=== PATIENT | female | born 1955 | race African-American/Black ===

== ENCOUNTER 2022-08-11 12:19 | Day surgery (SDC) | payer OTHER ==
[~2022-08-11 12:19] MED LIST: ACETAMINOPHEN 325 MG TABLET (FP) PO ONE; BORTEZOMIB 2.5 MG/ML SUB-Q INJECTION SQ ONE; DARATUMUMAB-HYALURONIDASE-FIHJ (FASPRO) 15 ML VIAL SQ ONE; DEXAMETHASONE SODIUM PHOSPHATE 40 MG, DIPHENHYDRAMINE 50 MG in SODIUM CHLORIDE 100 ML IVPB ONE; MONTELUKAST NA 10 MG TABLET PO ONE
[2022-08-11 12:52] LABS: BASO % 0.4 % (0-2.0); EOS % 0.5 % (0-4.5); HEMATOCRIT 20.5 % (32.4-45.2); LYMPH % 18.8 % (8-40); MCH 32.8 pg (25.7-33.7); MCHC 33.5 g/dl (32.0-36.0); MONO % 7.9 % (3.8-10.2); NEUT % 72.4 % (42.8-82.8); PLATELET COUNT 214 10^3/uL (134-434); RBC 2.09 M/mm3 (3.60-5.2); RDW 19.1 % (11.6-15.6); WHITE BLOOD COUNT 3.6 K/mm3 (4.0-10.0)
[2022-08-11 12:54] LABS: HEMOGLOBIN 6.9 GM/dL (10.7-15.3)
[2022-08-11 13:08] LABS: POTASSIUM 3.8 mmol/L (3.5-5.1)
[2022-08-11 13:10] LABS: CALCIUM 9.4 mg/dL (8.5-10.1)
[2022-08-11 13:11] LABS: ALBUMIN 2.3 g/dl (3.4-5.0); BLOOD UREA NITROGEN 10.6 mg/dL (7-18)
[2022-08-11 13:13] LABS: BILIRUBIN,DIRECT 0.2 mg/dL (0.0-0.2)
[2022-08-11 13:14] LABS: CREATININE 0.7 mg/dL (0.55-1.3)
[2022-08-11 13:15] LABS: BILIRUBIN,TOTAL 0.4 mg/dL (0.2-1)
[2022-08-11 13:25] LABS: TOT PROT 12.9 g/dl (6.4-8.2)
[2022-08-11 17:42] VITALS: TEMP 98.3
[2022-08-11 18:03] VITALS: BP 129/70; PULSE 92; RESP 19
[2022-08-12 13:07] LABS: FREE KAPPA,SERUM 1092.7 mg/L (3.3-19.4)
== END 2022-08-11 16:25 | disposition home or self-care (01) ==
LOC: EDBD → JONCCHEMO 12:19 → J7W 12:53 → JONCCHEMO 16:25
PROVIDERS: ATTEND Internal Medicine Hematology & Oncology
PROC: 3E01305 Introduction of Other Antineoplastic into Subcutaneous Tissue, Percutaneous Approach (ICD-10-PCS; principal; 2022-08-11)
PROC: 3E01305 Introduction of Other Antineoplastic into Subcutaneous Tissue, Percutaneous Approach (ICD-10-PCS; 2022-08-11)
PROC: 3E033GC Introduction of Other Therapeutic Substance into Peripheral Vein, Percutaneous Approach (ICD-10-PCS; 2022-08-11)
DX: Z51.11 Encounter for antineoplastic chemotherapy (principal); C90.00 Multiple myeloma not having achieved remission
CPT/HCPCS: 36415; 36430; 80048; 80076; 82784; 83883; 84155; 84165; 85025; 86850; 86900; 86901; 86922; 96365; 96401; J9041; J9144; P9058

== ENCOUNTER 2022-08-11 16:23 | Emergency (ER) | payer OTHER ==
[2022-08-11 16:43] VITALS: BMI 19.7
[2022-08-11] MEDS ORDERED: traMADol HCL 50 MG TABLET ONE (18:41)
[2022-08-11 18:54] VITALS: RESP 18
[2022-08-11] MEDS ORDERED: ACETAMINOPHEN 500 MG TABLET (FP) PO ONE (19:10)
[2022-08-11] MEDS ORDERED: traMADol HCL 50 MG TABLET PO ONE (19:10)
[2022-08-11] MEDS ORDERED: ACETAMINOPHEN 325 MG TABLET (FP) ONE (19:23)
[2022-08-11 21:28] VITALS: BP 127/79; PULSE 87; TEMP 98.6
== END 2022-08-11 22:38 ==
LOC: JER 16:23
DX: C90.00 Multiple myeloma not having achieved remission (principal); D50.9 Iron deficiency anemia, unspecified; R42 Dizziness and giddiness; R53.83 Other fatigue
CPT/HCPCS: 99285-25

== ENCOUNTER 2022-08-18 08:24 | Day surgery (SDC) | payer OTHER ==
[2022-08-18 09:14] LABS: BASO % 0.1 % (0-2.0); EOS % 0.2 % (0-4.5); HEMATOCRIT 19.8 % (32.4-45.2); MCH 32.8 pg (25.7-33.7); MCHC 33.6 g/dl (32.0-36.0); MEAN CELL VOLUME 97.4 fl (80-96); MEAN PLT VOLUME 6.3 fl (7.5-11.1); MONO % 8.8 % (3.8-10.2); NEUT % 74.9 % (42.8-82.8); PLATELET COUNT 208 10^3/uL (134-434); RBC 2.04 M/mm3 (3.60-5.2); RDW 19.6 % (11.6-15.6); WHITE BLOOD COUNT 3.3 K/mm3 (4.0-10.0)
[2022-08-18 09:34] LABS: HEMOGLOBIN 6.7 GM/dL (10.7-15.3)
[2022-08-18 09:41] LABS: POTASSIUM 3.8 mmol/L (3.5-5.1)
[2022-08-18 09:42] LABS: CALCIUM 9.1 mg/dL (8.5-10.1)
[2022-08-18 09:43] LABS: BLOOD UREA NITROGEN 15.7 mg/dL (7-18)
[2022-08-18 09:46] LABS: CREATININE 0.6 mg/dL (0.55-1.3)
[2022-08-18] MEDS ORDERED: DEXAMETHASONE SODIUM PHOSPHATE 40 MG, DIPHENHYDRAMINE 50 MG in SODIUM CHLORIDE 100 ML IVPB ONE (10:00)
[2022-08-18] MEDS ORDERED: ACETAMINOPHEN 325 MG TABLET (FP) PO ONE (10:00)
[2022-08-18] MEDS ORDERED: BORTEZOMIB 2.5 MG/ML SUB-Q INJECTION SQ ONE (10:30)
[2022-08-18] MEDS ORDERED: DARATUMUMAB-HYALURONIDASE-FIHJ (FASPRO) 15 ML VIAL SQ ONE (10:30)
[2022-08-18 12:17] LABS: ALBUMIN 2.2 g/dl (3.4-5.0)
[2022-08-18 12:20] LABS: BILIRUBIN,DIRECT 0.1 mg/dL (0.0-0.2)
[2022-08-18 12:22] LABS: BILIRUBIN,TOTAL 0.3 mg/dL (0.2-1)
[2022-08-18 12:38] LABS: TOT PROT 12.8 g/dl (6.4-8.2)
[2022-08-18] MEDS ORDERED: traMADol HCL 50 MG TABLET PO PRN (15:39)
[2022-08-18] MEDS ORDERED: ACETAMINOPHEN 325 MG TABLET (FP) PO PRN (17:57)
[2022-08-18] MEDS ORDERED: MELATONIN 1 MG TABLET PO SCH (22:00)
[2022-08-18] MEDS ORDERED: LIDOCAINE PATCH REMOVAL MC SCH (22:00)
[2022-08-18] MEDS: SODIUM BICARBONATE 650 MG TABLET PO SCH (22:50)
[2022-08-18] MEDS: SODIUM CHLORIDE 1 GM TABLET PO SCH (22:50)
[2022-08-18] MEDS: hydrALAZINE HCL 25 MG TABLET (FP) PO SCH (22:50)
[2022-08-18] MEDS: traMADol HCL 50 MG TABLET PO PRN (22:53)
[2022-08-19] MEDS: traMADol HCL 50 MG TABLET PO PRN (03:17)
[2022-08-19 05:40] VITALS: RESP 20
[2022-08-19] MEDS: hydrALAZINE HCL 25 MG TABLET (FP) PO SCH (05:58)
[2022-08-19 08:45] LABS: HEMATOCRIT 22.4 % (32.4-45.2); HEMOGLOBIN 7.8 GM/dL (10.7-15.3); MCH 32.7 pg (25.7-33.7); MEAN CELL VOLUME 93.5 fl (80-96); MEAN PLT VOLUME 6.9 fl (7.5-11.1); PLATELET COUNT 189 10^3/uL (134-434); RDW 19.9 % (11.6-15.6); WHITE BLOOD COUNT 4.4 K/mm3 (4.0-10.0)
[2022-08-19 08:59] LABS: POTASSIUM 3.9 mmol/L (3.5-5.1)
[2022-08-19 09:00] VITALS: BP 151/88; PULSE 79; TEMP 98.6
[2022-08-19 09:02] LABS: CALCIUM 8.7 mg/dL (8.5-10.1)
[2022-08-19 09:03] LABS: ALBUMIN 2.2 g/dl (3.4-5.0); BLOOD UREA NITROGEN 17.4 mg/dL (7-18)
[2022-08-19 09:06] LABS: CREATININE 0.6 mg/dL (0.55-1.3)
[2022-08-19 09:08] LABS: BILIRUBIN,TOTAL 0.4 mg/dL (0.2-1)
[2022-08-19 09:17] LABS: TOT PROT 12.8 g/dl (6.4-8.2)
[2022-08-19] MEDS: SODIUM CHLORIDE 1 GM TABLET PO SCH (09:33)
[2022-08-19] MEDS: SODIUM BICARBONATE 650 MG TABLET PO SCH (09:35)
[2022-08-19] MEDS ORDERED: LIDOCAINE 5% TOPICAL PATCH TP SCH (10:00)
[2022-08-19] MEDS ORDERED: LOSARTAN POTASSIUM 50 MG TABLET PO SCH (10:00)
[2022-08-19] MEDS ORDERED: HYDROCHLOROTHIAZIDE 25 MG TABLET (FP) PO SCH (10:00)
[2022-08-19] MEDS ORDERED: CALCITRIOL 0.25 MCG CAPSULE (FP) PO SCH (10:00)
== END 2022-08-19 12:00 ==
LOC: JONCCHEMO 08:24 → J7W 08:25 → JONCCHEMO 08-19 12:00
PROVIDERS: ATTEND Internal Medicine Hematology & Oncology
PROC: 30233H1 Transfusion of Nonautologous Whole Blood into Peripheral Vein, Percutaneous Approach (ICD-10-PCS; principal; 2022-08-18)
PROC: 3E01305 Introduction of Other Antineoplastic into Subcutaneous Tissue, Percutaneous Approach (ICD-10-PCS; 2022-08-18)
PROC: 3E01305 Introduction of Other Antineoplastic into Subcutaneous Tissue, Percutaneous Approach (ICD-10-PCS; 2022-08-18)
PROC: 3E033GC Introduction of Other Therapeutic Substance into Peripheral Vein, Percutaneous Approach (ICD-10-PCS; 2022-08-18)
DX: Z51.11 Encounter for antineoplastic chemotherapy (principal); C90.00 Multiple myeloma not having achieved remission; D64.9 Anemia, unspecified
CPT/HCPCS: 36415; 36430; 71045-TC-FY; 80048; 80053; 80076; 85025; 85027; 86850; 86870; 86900; 86901; 86902; 86922; 96365; 96401; J9041; J9144; P9058

== ENCOUNTER 2022-09-02 08:28 | Day surgery (SDC) | payer OTHER ==
[2022-09-02] MEDS ORDERED: ACETAMINOPHEN 325 MG TABLET (FP) PO ONE (09:00)
[2022-09-02] MEDS ORDERED: DEXAMETHASONE SODIUM PHOSPHATE 40 MG, DIPHENHYDRAMINE 50 MG in SODIUM CHLORIDE 100 ML IVPB ONE (09:00)
[2022-09-02] MEDS ORDERED: DARATUMUMAB-HYALURONIDASE-FIHJ (FASPRO) 15 ML VIAL SQ ONE (09:30)
[2022-09-02] MEDS ORDERED: BORTEZOMIB 2.5 MG/ML SUB-Q INJECTION SQ ONE (09:45)
[2022-09-02 10:30] LABS: HEMATOCRIT 24.9 % (32.4-45.2); HEMOGLOBIN 8.2 GM/dL (10.7-15.3); MCH 31.2 pg (25.7-33.7); MCHC 32.8 g/dl (32.0-36.0); MEAN PLT VOLUME 6.9 fl (7.5-11.1); PLATELET COUNT 256 10^3/uL (134-434); RBC 2.62 M/mm3 (3.60-5.2); RDW 20.3 % (11.6-15.6); WHITE BLOOD COUNT 5.3 K/mm3 (4.0-10.0)
[2022-09-02 10:57] LABS: POTASSIUM 3.6 mmol/L (3.5-5.1)
[2022-09-02 11:04] LABS: CALCIUM 10.1 mg/dL (8.5-10.1)
[2022-09-02 11:05] LABS: ALBUMIN 2.1 g/dl (3.4-5.0); BLOOD UREA NITROGEN 21.8 mg/dL (7-18)
[2022-09-02 11:08] LABS: BILIRUBIN,DIRECT 0.1 mg/dL (0.0-0.2); CREATININE 0.5 mg/dL (0.55-1.3)
[2022-09-02 11:09] LABS: BILIRUBIN,TOTAL 0.6 mg/dL (0.2-1)
[2022-09-02 11:10] LABS: TOT PROT 11.6 g/dl (6.4-8.2)
[2022-09-02 11:16] LABS: ANISOCYTOSIS 1+; MACROCYTOSIS 1+
[2022-09-02 13:46] VITALS: BP 138/81; PULSE 94; RESP 20; TEMP 98.4
== END 2022-09-02 13:30 | disposition home or self-care (01) ==
LOC: JONCCHEMO 08:28 → J7W 08:29 → JONCCHEMO 13:30
PROVIDERS: ATTEND Internal Medicine Hematology & Oncology
PROC: 3E01305 Introduction of Other Antineoplastic into Subcutaneous Tissue, Percutaneous Approach (ICD-10-PCS; principal; 2022-09-02)
PROC: 3E01305 Introduction of Other Antineoplastic into Subcutaneous Tissue, Percutaneous Approach (ICD-10-PCS; 2022-09-02)
PROC: 3E033GC Introduction of Other Therapeutic Substance into Peripheral Vein, Percutaneous Approach (ICD-10-PCS; 2022-09-02)
DX: Z51.11 Encounter for antineoplastic chemotherapy (principal); C90.00 Multiple myeloma not having achieved remission
CPT/HCPCS: 36415; 80048; 80076; 85025; 86850; 86870; 86900; 86901; 86902; 96365; 96401; J9041; J9144

== ENCOUNTER 2022-09-09 09:30 | Day surgery (SDC) | payer OTHER ==
[~2022-09-09 09:30] MED LIST changes: -MONTELUKAST NA 10 MG TABLET PO ONE
[2022-09-09 10:20] LABS: HEMATOCRIT 22.5 % (32.4-45.2); HEMOGLOBIN 7.5 GM/dL (10.7-15.3); MCH 31.7 pg (25.7-33.7); MCHC 33.2 g/dl (32.0-36.0); MEAN CELL VOLUME 95.5 fl (80-96); MEAN PLT VOLUME 7.3 fl (7.5-11.1); PLATELET COUNT 233 10^3/uL (134-434); RBC 2.36 M/mm3 (3.60-5.2); RDW 20.4 % (11.6-15.6); WHITE BLOOD COUNT 5.1 K/mm3 (4.0-10.0)
[2022-09-09 10:36] LABS: CHLORIDE 99 mmol/L (98-107); POTASSIUM 3.4 mmol/L (3.5-5.1); SODIUM 131 mmol/L (136-145)
[2022-09-09 10:38] LABS: CALCIUM 11.5 mg/dL (8.5-10.1)
[2022-09-09 10:39] LABS: ANION GAP 5 MMOL/L (8-16); BLOOD UREA NITROGEN 22.9 mg/dL (7-18); CO2 27 mmol/L (21-32); GLUCOSE,RANDOM 118 mg/dL (74-106)
[2022-09-09 10:41] LABS: BILIRUBIN,DIRECT < 0.1 mg/dL (0.0-0.2)
[2022-09-09 10:42] LABS: CREATININE 0.8 mg/dL (0.55-1.3); SGOT/AST 10 U/L (15-37); SGPT/ALT 14 U/L (13-61)
[2022-09-09 10:43] LABS: BILIRUBIN,TOTAL 0.3 mg/dL (0.2-1)
[2022-09-09 10:45] LABS: ALK PHOS 53 U/L (45-117)
[2022-09-09 11:01] LABS: TOT PROT 11.8 g/dl (6.4-8.2)
[2022-09-09 11:04] LABS: ANISOCYTOSIS 3+; MACROCYTOSIS 1+
[2022-09-09] MEDS ORDERED: SODIUM CHLORIDE 100 ML IVPB ONE (12:30)
[2022-09-09] MEDS ORDERED: ZOLEDRONIC ACID 4 MG in SODIUM CHLORIDE 100 ML IVPB ONE (13:00)
[2022-09-09 20:04] VITALS: RESP 18; TEMP 98.8
[2022-09-09 20:11] VITALS: BP 103/52; PULSE 91
== END 2022-09-09 15:00 ==
LOC: JONCCHEMO 09:30 → J7W 09:31 → JONCCHEMO 15:00
PROVIDERS: ATTEND Internal Medicine Hematology & Oncology
PROC: 3E01305 Introduction of Other Antineoplastic into Subcutaneous Tissue, Percutaneous Approach (ICD-10-PCS; principal; 2022-09-09)
PROC: 3E033GC Introduction of Other Therapeutic Substance into Peripheral Vein, Percutaneous Approach (ICD-10-PCS; 2022-09-09)
DX: Z51.11 Encounter for antineoplastic chemotherapy (principal); C90.00 Multiple myeloma not having achieved remission
CPT/HCPCS: 36415; 80048; 80076; 82784; 83883; 84155; 84165; 85025; 96365; 96367; 96401; J3489; J9041; J9144

== ENCOUNTER 2022-09-16 08:34 | Day surgery (SDC) | payer OTHER ==
[2022-09-16 08:59] LABS: BASO % 0.1 % (0-2.0); EOS % 0.1 % (0-4.5); HEMATOCRIT 20.1 % (32.4-45.2); LYMPH % 38.7 % (8-40); MCH 33.3 pg (25.7-33.7); MCHC 34.8 g/dl (32.0-36.0); MEAN CELL VOLUME 95.6 fl (80-96); MEAN PLT VOLUME 6.7 fl (7.5-11.1); MONO % 7.7 % (3.8-10.2); NEUT % 53.4 % (42.8-82.8); PLATELET COUNT 247 10^3/uL (134-434); RDW 22.1 % (11.6-15.6)
[2022-09-16] MEDS ORDERED: ACETAMINOPHEN 325 MG TABLET (FP) PO ONE (09:00)
[2022-09-16] MEDS ORDERED: SODIUM CHLORIDE IVPB ONE (09:30)
[2022-09-16] MEDS ORDERED: DEXAMETHASONE IVPB ONE (09:30)
[2022-09-16] MEDS ORDERED: DIPHENHYDRAMINE IVPB ONE (09:30)
[2022-09-16 09:31] LABS: POTASSIUM 3.6 mmol/L (3.5-5.1)
[2022-09-16 09:34] LABS: BLOOD UREA NITROGEN 13.3 mg/dL (7-18); CALCIUM 9.8 mg/dL (8.5-10.1)
[2022-09-16 09:36] LABS: BILIRUBIN,DIRECT 0.1 mg/dL (0.0-0.2); CREATININE 0.7 mg/dL (0.55-1.3)
[2022-09-16 09:38] LABS: BILIRUBIN,TOTAL 0.2 mg/dL (0.2-1); TOT PROT 11.6 g/dl (6.4-8.2)
[2022-09-16] MEDS ORDERED: diphenhydrAMINE HCL 25 MG CAPSULE (FP) PO ONE (10:00)
[2022-09-16] MEDS ORDERED: DEXAMETHASONE 4 MG TABLET (FP) PO ONE (10:00)
[2022-09-16] MEDS ORDERED: DARATUMUMAB-HYALURONIDASE-FIHJ (FASPRO) 15 ML VIAL SQ ONE (10:00)
[2022-09-16] MEDS ORDERED: BORTEZOMIB 2.5 MG/ML SUB-Q INJECTION SQ ONE (10:00)
[2022-09-16 10:03] LABS: ANISOCYTOSIS 2+; MACROCYTOSIS 0
[2022-09-16 14:48] VITALS: BP 133/70; PULSE 80; RESP 20; TEMP 98.4
== END 2022-09-16 17:15 | disposition home or self-care (01) ==
LOC: J7W 08:34 → JONCCHEMO 08:34
PROVIDERS: ATTEND Internal Medicine Hematology & Oncology
PROC: 3E01305 Introduction of Other Antineoplastic into Subcutaneous Tissue, Percutaneous Approach (ICD-10-PCS; principal; 2022-09-16)
PROC: 30233N1 Transfusion of Nonautologous Red Blood Cells into Peripheral Vein, Percutaneous Approach (ICD-10-PCS; 2022-09-16)
DX: Z51.11 Encounter for antineoplastic chemotherapy (principal); C90.00 Multiple myeloma not having achieved remission; D64.9 Anemia, unspecified
CPT/HCPCS: 36415; 36430; 80048; 80076; 85025; 86850; 86870; 86900; 86901; 86902; 86922; 96401; J9041; J9144; P9058

== ENCOUNTER 2022-09-23 10:08 | Day surgery (SDC) | payer OTHER ==
[~2022-09-23 10:08] MED LIST changes: -BORTEZOMIB 2.5 MG/ML SUB-Q INJECTION SQ ONE; +DEXAMETHASONE 4 MG TABLET (FP) PO ONE; -DEXAMETHASONE SODIUM PHOSPHATE 40 MG, DIPHENHYDRAMINE 50 MG in SODIUM CHLORIDE 100 ML IVPB ONE; +diphenhydrAMINE HCL 25 MG CAPSULE (FP) PO ONE
[2022-09-23] MEDS ORDERED: BORTEZOMIB 2.5 MG/ML SUB-Q INJECTION SQ ONE (10:15)
[2022-09-23 10:53] LABS: BASO % 0.1 % (0-2.0); EOS % 0.4 % (0-4.5); HEMATOCRIT 22.7 % (32.4-45.2); HEMOGLOBIN 7.5 GM/dL (10.7-15.3); LYMPH % 23.5 % (8-40); MCH 31.5 pg (25.7-33.7); MEAN CELL VOLUME 95.6 fl (80-96); MEAN PLT VOLUME 7.9 fl (7.5-11.1); MONO % 4.6 % (3.8-10.2); NEUT % 71.4 % (42.8-82.8); PLATELET COUNT 240 10^3/uL (134-434); RBC 2.38 M/mm3 (3.60-5.2); RDW 23.4 % (11.6-15.6); WHITE BLOOD COUNT 4.5 K/mm3 (4.0-10.0)
[2022-09-23 11:16] LABS: POTASSIUM 4.1 mmol/L (3.5-5.1)
[2022-09-23 11:22] LABS: CALCIUM 9.2 mg/dL (8.5-10.1)
[2022-09-23 11:23] LABS: ALBUMIN 2.2 g/dl (3.4-5.0); BLOOD UREA NITROGEN 34.5 mg/dL (7-18)
[2022-09-23 11:26] LABS: BILIRUBIN,DIRECT 0.1 mg/dL (0.0-0.2)
[2022-09-23 11:27] LABS: TOT PROT 11.4 g/dl (6.4-8.2)
[2022-09-23 11:28] LABS: BILIRUBIN,TOTAL 0.4 mg/dL (0.2-1)
[2022-09-23 12:25] LABS: ANISOCYTOSIS 1+; MACROCYTOSIS 1+
[2022-09-23] MEDS ORDERED: SODIUM CHLORIDE 1,000 ML IV ONE (13:00)
[2022-09-23 15:24] LABS: POTASSIUM 4.2 mmol/L (3.5-5.1)
[2022-09-23 15:26] LABS: BLOOD UREA NITROGEN 34.2 mg/dL (7-18); CALCIUM 9.1 mg/dL (8.5-10.1)
[2022-09-23 15:29] LABS: CREATININE 2.1 mg/dL (0.55-1.3)
[2022-09-23 15:31] LABS: BILIRUBIN,TOTAL 0.3 mg/dL (0.2-1); TOT PROT 10.8 g/dl (6.4-8.2)
[2022-09-23 17:26] VITALS: BP 119/69; PULSE 88; RESP 20; TEMP 98.4
== END 2022-09-23 15:25 | disposition home or self-care (01) ==
LOC: J7W 10:08 → JONCCHEMO 10:08
PROVIDERS: ATTEND Internal Medicine Hematology & Oncology
PROC: 3E0337Z Introduction of Electrolytic and Water Balance Substance into Peripheral Vein, Percutaneous Approach (ICD-10-PCS; principal; 2022-09-23)
PROC: 3E01305 Introduction of Other Antineoplastic into Subcutaneous Tissue, Percutaneous Approach (ICD-10-PCS; 2022-09-23)
PROC: 3E01305 Introduction of Other Antineoplastic into Subcutaneous Tissue, Percutaneous Approach (ICD-10-PCS; 2022-09-23)
DX: Z51.11 Encounter for antineoplastic chemotherapy (principal); C90.00 Multiple myeloma not having achieved remission
CPT/HCPCS: 36415; 80048; 80053; 80076; 85025; 96360; 96401; J9041; J9144

== ENCOUNTER 2022-09-30 09:30 | Day surgery (SDC) | payer OTHER ==
[2022-09-30] MEDS ORDERED: DEXAMETHASONE 4 MG TABLET (FP) PO ONE (10:00)
[2022-09-30] MEDS ORDERED: ACETAMINOPHEN 325 MG TABLET (FP) PO ONE (10:00)
[2022-09-30] MEDS ORDERED: diphenhydrAMINE HCL 25 MG CAPSULE (FP) PO ONE (10:00)
[2022-09-30 10:12] LABS: BASO % 0.2 % (0-2.0); EOS % 0.7 % (0-4.5); HEMATOCRIT 19.3 % (32.4-45.2); LYMPH % 19.9 % (8-40); MCH 32.3 pg (25.7-33.7); MCHC 33.8 g/dl (32.0-36.0); MEAN CELL VOLUME 95.6 fl (80-96); MEAN PLT VOLUME 9.2 fl (7.5-11.1); MONO % 7.3 % (3.8-10.2); NEUT % 71.9 % (42.8-82.8); PLATELET COUNT 174 10^3/uL (134-434); RBC 2.02 M/mm3 (3.60-5.2); RDW 23.4 % (11.6-15.6); WHITE BLOOD COUNT 4.4 K/mm3 (4.0-10.0)
[2022-09-30 10:15] LABS: HEMOGLOBIN 6.5 GM/dL (10.7-15.3)
[2022-09-30] MEDS ORDERED: DARATUMUMAB-HYALURONIDASE-FIHJ (FASPRO) 15 ML VIAL SQ ONE (10:30)
[2022-09-30] MEDS ORDERED: BORTEZOMIB 2.5 MG/ML SUB-Q INJECTION SQ ONE (11:00)
[2022-09-30 11:10] LABS: POTASSIUM 3.5 mmol/L (3.5-5.1)
[2022-09-30 11:12] LABS: CALCIUM 9.9 mg/dL (8.5-10.1)
[2022-09-30 11:13] LABS: ALBUMIN 2.2 g/dl (3.4-5.0); BLOOD UREA NITROGEN 21.4 mg/dL (7-18)
[2022-09-30 11:16] LABS: CREATININE 1.2 mg/dL (0.55-1.3)
[2022-09-30 11:17] LABS: BILIRUBIN,TOTAL 0.3 mg/dL (0.2-1); TOT PROT 10.3 g/dl (6.4-8.2)
[2022-09-30 11:26] LABS: BILIRUBIN,DIRECT 0.1 mg/dL (0.0-0.2)
[2022-09-30 11:33] LABS: ANISOCYTOSIS 1+; MACROCYTOSIS 1+
[2022-09-30 17:21] VITALS: RESP 20; TEMP 98.7
[2022-09-30 17:30] VITALS: BP 118/71; PULSE 85
== END 2022-09-30 17:50 | disposition home or self-care (01) ==
LOC: JONCCHEMO 09:30 → J7W 09:31 → JONCCHEMO 17:50
PROVIDERS: ATTEND Internal Medicine Hematology & Oncology
PROC: 3E01305 Introduction of Other Antineoplastic into Subcutaneous Tissue, Percutaneous Approach (ICD-10-PCS; principal; 2022-09-30)
PROC: 3E01305 Introduction of Other Antineoplastic into Subcutaneous Tissue, Percutaneous Approach (ICD-10-PCS; 2022-09-30)
PROC: 30233N1 Transfusion of Nonautologous Red Blood Cells into Peripheral Vein, Percutaneous Approach (ICD-10-PCS; 2022-09-30)
DX: Z51.11 Encounter for antineoplastic chemotherapy (principal); C90.00 Multiple myeloma not having achieved remission
CPT/HCPCS: 36415; 36430; 80048; 80076; 85025; 86850; 86870; 86900; 86901; 86902; 86922; 96401; J9041; J9144; P9058

== ENCOUNTER 2022-10-07 09:18 | Day surgery (SDC) | payer OTHER ==
[2022-10-07 10:05] LABS: BASO % 0.2 % (0-2.0); EOS % 1.2 % (0-4.5); HEMATOCRIT 23.5 % (32.4-45.2); HEMOGLOBIN 7.7 GM/dL (10.7-15.3); LYMPH % 39.3 % (8-40); MCH 32.4 pg (25.7-33.7); MEAN CELL VOLUME 98.4 fl (80-96); MEAN PLT VOLUME 8.5 fl (7.5-11.1); MONO % 12.4 % (3.8-10.2); NEUT % 46.9 % (42.8-82.8); PLATELET COUNT 162 10^3/uL (134-434); RBC 2.39 M/mm3 (3.60-5.2); RDW 22.2 % (11.6-15.6); WHITE BLOOD COUNT 2.7 K/mm3 (4.0-10.0)
[2022-10-07 10:12] LABS: POTASSIUM 3.6 mmol/L (3.5-5.1)
[2022-10-07 10:14] LABS: CALCIUM 10.2 mg/dL (8.5-10.1)
[2022-10-07 10:15] LABS: ALBUMIN 2.3 g/dl (3.4-5.0); BLOOD UREA NITROGEN 15.7 mg/dL (7-18)
[2022-10-07 10:17] LABS: BILIRUBIN,DIRECT 0.1 mg/dL (0.0-0.2)
[2022-10-07 10:18] VITALS: RESP 20; TEMP 98.3
[2022-10-07 10:18] LABS: CREATININE 0.9 mg/dL (0.55-1.3)
[2022-10-07 10:19] LABS: BILIRUBIN,TOTAL 0.2 mg/dL (0.2-1); TOT PROT 10.4 g/dl (6.4-8.2)
[2022-10-07] MEDS ORDERED: diphenhydrAMINE HCL 25 MG CAPSULE (FP) PO ONE (11:00)
[2022-10-07] MEDS ORDERED: DEXAMETHASONE 4 MG TABLET (FP) PO ONE (11:00)
[2022-10-07] MEDS ORDERED: ACETAMINOPHEN 325 MG TABLET (FP) PO ONE (11:00)
[2022-10-07] MEDS ORDERED: DARATUMUMAB-HYALURONIDASE-FIHJ (FASPRO) 15 ML VIAL SQ ONE (11:30)
[2022-10-07] MEDS ORDERED: BORTEZOMIB 2.5 MG/ML SUB-Q INJECTION SQ ONE (11:45)
[2022-10-07 13:14] VITALS: BP 114/61; PULSE 78
== END 2022-10-07 13:50 ==
LOC: JONCCHEMO 09:18 → J7W 09:19 → JONCCHEMO 13:50
PROVIDERS: ATTEND Internal Medicine Hematology & Oncology
DX: Z51.11 Encounter for antineoplastic chemotherapy (principal); C90.00 Multiple myeloma not having achieved remission
CPT/HCPCS: 36415; 80048; 80076; 85025; 96401; J9041; J9144

== ENCOUNTER 2022-10-14 09:17 | Day surgery (SDC) | payer OTHER ==
[2022-10-14 09:45] LABS: HEMATOCRIT 20.6 % (32.4-45.2); MCH 33.2 pg (25.7-33.7); MEAN CELL VOLUME 97.7 fl (80-96); PLATELET COUNT 165 10^3/uL (134-434); RBC 2.11 M/mm3 (3.60-5.2); RDW 23.8 % (11.6-15.6)
[2022-10-14] MEDS ORDERED: diphenhydrAMINE HCL 25 MG CAPSULE (FP) PO ONE (10:00)
[2022-10-14] MEDS ORDERED: DEXAMETHASONE 4 MG TABLET (FP) PO ONE (10:00)
[2022-10-14] MEDS ORDERED: ACETAMINOPHEN 325 MG TABLET (FP) PO ONE (10:00)
[2022-10-14 10:01] LABS: POTASSIUM 4.4 mmol/L (3.5-5.1); WHITE BLOOD COUNT 1.5 K/mm3 (4.0-10.0)
[2022-10-14 10:03] LABS: CALCIUM 10.3 mg/dL (8.5-10.1)
[2022-10-14 10:04] LABS: ALBUMIN 2.4 g/dl (3.4-5.0); BLOOD UREA NITROGEN 12.5 mg/dL (7-18)
[2022-10-14 10:06] LABS: BILIRUBIN,DIRECT 0.2 mg/dL (0.0-0.2)
[2022-10-14 10:07] LABS: CREATININE 0.9 mg/dL (0.55-1.3)
[2022-10-14 10:08] LABS: BILIRUBIN,TOTAL 0.6 mg/dL (0.2-1); TOT PROT 10.6 g/dl (6.4-8.2)
[2022-10-14] MEDS ORDERED: DARATUMUMAB-HYALURONIDASE-FIHJ (FASPRO) 15 ML VIAL SQ ONE (10:30)
[2022-10-14] MEDS ORDERED: BORTEZOMIB 2.5 MG/ML SUB-Q INJECTION SQ ONE (10:30)
[2022-10-14 11:27] LABS: ANISOCYTOSIS 2+; MACROCYTOSIS 2+; TEAR DROP CELLS 2+
[2022-10-14 18:01] VITALS: BP 138/78; PULSE 74; RESP 18; TEMP 98.4
[2022-10-15 17:06] LABS: FREE KAPPA,SERUM 1210.8 mg/L (3.3-19.4)
== END 2022-10-14 18:42 | disposition home or self-care (01) ==
LOC: JONCCHEMO 09:17 → J7W 09:17 → JONCCHEMO 18:42
PROVIDERS: ATTEND Internal Medicine Hematology & Oncology
PROC: 30233N1 Transfusion of Nonautologous Red Blood Cells into Peripheral Vein, Percutaneous Approach (ICD-10-PCS; principal; 2022-10-14)
DX: Z86.79 Personal history of other diseases of the circulatory system (principal); C90.00 Multiple myeloma not having achieved remission
CPT/HCPCS: 36415; 36430; 80048; 80076; 82784; 83883; 84155; 84165; 85025; 86850; 86870; 86900; 86901; 86902; 86922; P9058

== ENCOUNTER 2022-10-21 09:19 | Day surgery (SDC) | payer OTHER ==
[2022-10-21 09:44] LABS: BASO % 0.2 % (0-2.0); EOS % 0.4 % (0-4.5); HEMATOCRIT 21.1 % (32.4-45.2); HEMOGLOBIN 7.1 GM/dL (10.7-15.3); LYMPH % 27.7 % (8-40); MCH 32.1 pg (25.7-33.7); MCHC 33.7 g/dl (32.0-36.0); MEAN CELL VOLUME 95.1 fl (80-96); MONO % 12.9 % (3.8-10.2); NEUT % 58.8 % (42.8-82.8); PLATELET COUNT 149 10^3/uL (134-434); RBC 2.22 M/mm3 (3.60-5.2); RDW 26.1 % (11.6-15.6); WHITE BLOOD COUNT 3.4 K/mm3 (4.0-10.0)
[2022-10-21 10:00] LABS: POTASSIUM 4.1 mmol/L (3.5-5.1)
[2022-10-21] MEDS ORDERED: diphenhydrAMINE HCL 25 MG CAPSULE (FP) PO ONE (10:00)
[2022-10-21] MEDS ORDERED: DEXAMETHASONE 4 MG TABLET (FP) PO ONE (10:00)
[2022-10-21 10:02] LABS: ALBUMIN 2.6 g/dl (3.4-5.0); BLOOD UREA NITROGEN 13.9 mg/dL (7-18); CALCIUM 11.2 mg/dL (8.5-10.1)
[2022-10-21 10:06] LABS: BILIRUBIN,DIRECT 0.1 mg/dL (0.0-0.2); CREATININE 0.8 mg/dL (0.55-1.3)
[2022-10-21 10:08] LABS: BILIRUBIN,TOTAL 0.3 mg/dL (0.2-1); TOT PROT 10.3 g/dl (6.4-8.2)
[2022-10-21] MEDS ORDERED: BORTEZOMIB 2.5 MG/ML SUB-Q INJECTION SQ ONE (10:30)
[2022-10-21 10:42] LABS: ANISOCYTOSIS 1+; MACROCYTOSIS 0
[2022-10-21] MEDS ORDERED: DARATUMUMAB-HYALURONIDASE-FIHJ (FASPRO) 15 ML VIAL SQ ONE (10:45)
[2022-10-21] MEDS ORDERED: ACETAMINOPHEN 325 MG TABLET (FP) PO ONE (10:45)
[2022-10-21] MEDS ORDERED: ZOLEDRONIC ACID 4 MG in SODIUM CHLORIDE 100 ML IVPB ONE (11:00)
[2022-10-21] MEDS ORDERED: SODIUM CHLORIDE 1,000 ML IV ONE (11:00)
[2022-10-21 16:09] VITALS: BP 147/84; PULSE 100; RESP 20; TEMP 98.4
== END 2022-10-21 13:40 | disposition home or self-care (01) ==
LOC: J7W 09:19 → JONCCHEMO 09:19
PROVIDERS: ATTEND Internal Medicine Hematology & Oncology
PROC: 3E033GC Introduction of Other Therapeutic Substance into Peripheral Vein, Percutaneous Approach (ICD-10-PCS; principal; 2022-10-21)
PROC: 3E01305 Introduction of Other Antineoplastic into Subcutaneous Tissue, Percutaneous Approach (ICD-10-PCS; 2022-10-21)
PROC: 3E01305 Introduction of Other Antineoplastic into Subcutaneous Tissue, Percutaneous Approach (ICD-10-PCS; 2022-10-21)
DX: Z51.11 Encounter for antineoplastic chemotherapy (principal); C90.00 Multiple myeloma not having achieved remission
CPT/HCPCS: 36415; 80048; 80076; 85025; 86850; 86870; 86900; 86901; 86902; 96365; 96401; J3489; J9041; J9144

== ENCOUNTER 2022-10-28 08:59 | Day surgery (SDC) | payer OTHER ==
[2022-10-28] MEDS ORDERED: DEXAMETHASONE 4 MG TABLET (FP) PO ONE (09:00)
[2022-10-28] MEDS ORDERED: BORTEZOMIB 2.5 MG/ML SUB-Q INJECTION SQ ONE (09:00)
[2022-10-28] MEDS ORDERED: ACETAMINOPHEN 325 MG TABLET (FP) PO ONE (09:00)
[2022-10-28] MEDS ORDERED: diphenhydrAMINE HCL 25 MG CAPSULE (FP) PO ONE (09:00)
[2022-10-28 09:19] LABS: BASO % 0.3 % (0-2.0); EOS % 0.7 % (0-4.5); HEMATOCRIT 21.4 % (32.4-45.2); HEMOGLOBIN 7.3 GM/dL (10.7-15.3); LYMPH % 34.1 % (8-40); MCH 32.8 pg (25.7-33.7); MEAN CELL VOLUME 96.5 fl (80-96); MEAN PLT VOLUME 6.8 fl (7.5-11.1); MONO % 14.6 % (3.8-10.2); NEUT % 50.3 % (42.8-82.8); PLATELET COUNT 126 10^3/uL (134-434); RBC 2.22 M/mm3 (3.60-5.2); RDW 27.6 % (11.6-15.6); WHITE BLOOD COUNT 2.9 K/mm3 (4.0-10.0)
[2022-10-28] MEDS ORDERED: DARATUMUMAB-HYALURONIDASE-FIHJ (FASPRO) 15 ML VIAL SQ ONE (09:30)
[2022-10-28 09:42] LABS: POTASSIUM 3.4 mmol/L (3.5-5.1)
[2022-10-28 09:43] LABS: CALCIUM 10.1 mg/dL (8.5-10.1)
[2022-10-28 09:44] LABS: ALBUMIN 2.4 g/dl (3.4-5.0); BLOOD UREA NITROGEN 9.1 mg/dL (7-18)
[2022-10-28 09:47] LABS: BILIRUBIN,DIRECT 0.1 mg/dL (0.0-0.2); CREATININE 0.8 mg/dL (0.55-1.3)
[2022-10-28 09:49] LABS: BILIRUBIN,TOTAL 0.3 mg/dL (0.2-1); TOT PROT 10.8 g/dl (6.4-8.2)
[2022-10-28 10:38] LABS: ANISOCYTOSIS 1+; MACROCYTOSIS 0
[2022-10-28 13:27] VITALS: BP 142/84; PULSE 72; RESP 18; TEMP 97.5
== END 2022-10-28 11:45 | disposition home or self-care (01) ==
LOC: JONCCHEMO 08:59 → J7W 09:05 → JONCCHEMO 11:45
PROVIDERS: ATTEND Internal Medicine Hematology & Oncology
DX: Z51.11 Encounter for antineoplastic chemotherapy (principal); C90.00 Multiple myeloma not having achieved remission
CPT/HCPCS: 36415; 80048; 80076; 85025; 96401; J9041

== ENCOUNTER 2022-11-04 09:40 | Day surgery (SDC) | payer OTHER ==
[~2022-11-04 09:40] MED LIST changes: -DARATUMUMAB-HYALURONIDASE-FIHJ (FASPRO) 15 ML VIAL SQ ONE
[2022-11-04] MEDS ORDERED: BORTEZOMIB 2.5 MG/ML SUB-Q INJECTION SQ ONE (10:00)
[2022-11-04] MEDS ORDERED: DARATUMUMAB-HYALURONIDASE-FIHJ (FASPRO) 15 ML VIAL SQ ONE (10:15)
[2022-11-04 10:32] LABS: BASO % 0.2 % (0-2.0); EOS % 3.6 % (0-4.5); HEMATOCRIT 20.5 % (32.4-45.2); LYMPH % 27.6 % (8-40); MCH 33.2 pg (25.7-33.7); MCHC 32.8 g/dl (32.0-36.0); MEAN CELL VOLUME 101.1 fl (80-96); MEAN PLT VOLUME 8.2 fl (7.5-11.1); MONO % 5.9 % (3.8-10.2); NEUT % 62.7 % (42.8-82.8); PLATELET COUNT 150 10^3/uL (134-434); RBC 2.02 M/mm3 (3.60-5.2); RDW 28.5 % (11.6-15.6); WHITE BLOOD COUNT 2.5 K/mm3 (4.0-10.0)
[2022-11-04 10:37] LABS: HEMOGLOBIN 6.7 GM/dL (10.7-15.3)
[2022-11-04 11:09] LABS: POTASSIUM 4.4 mmol/L (3.5-5.1)
[2022-11-04 11:11] LABS: ALBUMIN 2.8 g/dl (3.4-5.0); BLOOD UREA NITROGEN 15.8 mg/dL (7-18); CALCIUM 10.9 mg/dL (8.5-10.1)
[2022-11-04 11:14] LABS: BILIRUBIN,DIRECT 0.2 mg/dL (0.0-0.2); CREATININE 0.9 mg/dL (0.55-1.3)
[2022-11-04 11:16] LABS: TOT PROT 11.1 g/dl (6.4-8.2)
[2022-11-04 11:19] LABS: BILIRUBIN,TOTAL 0.4 mg/dL (0.2-1)
[2022-11-04 11:40] LABS: ANISOCYTOSIS 2+; MACROCYTOSIS 1+
[2022-11-04 17:04] VITALS: BP 119/65; PULSE 81; RESP 18
[2022-11-04 17:07] VITALS: TEMP 98.1
== END 2022-11-04 18:19 | disposition home or self-care (01) ==
LOC: JONCCHEMO 09:40 → J7W 09:41 → JONCCHEMO 18:19
PROVIDERS: ATTEND Internal Medicine Hematology & Oncology
DX: Z51.11 Encounter for antineoplastic chemotherapy (principal); C90.00 Multiple myeloma not having achieved remission
CPT/HCPCS: 36415; 36430; 80048; 80076; 85025; 86850; 86870; 86900; 86901; 86902; 86922; 96401; J9041; J9144; P9058

== ENCOUNTER 2022-11-11 09:14 | Day surgery (SDC) | payer OTHER ==
[2022-11-11] MEDS ORDERED: DEXAMETHASONE 4 MG TABLET (FP) PO ONE (09:30)
[2022-11-11] MEDS ORDERED: diphenhydrAMINE HCL 25 MG CAPSULE (FP) PO ONE (09:30)
[2022-11-11 09:53] LABS: BASO % 0.3 % (0-2.0); EOS % 1.5 % (0-4.5); HEMATOCRIT 23.3 % (32.4-45.2); HEMOGLOBIN 7.9 GM/dL (10.7-15.3); LYMPH % 27.1 % (8-40); MCH 32.9 pg (25.7-33.7); MEAN CELL VOLUME 96.9 fl (80-96); MONO % 11.6 % (3.8-10.2); NEUT % 59.5 % (42.8-82.8); PLATELET COUNT 146 10^3/uL (134-434); RDW 28.1 % (11.6-15.6); WHITE BLOOD COUNT 2.1 K/mm3 (4.0-10.0)
[2022-11-11] MEDS ORDERED: BORTEZOMIB 2.5 MG/ML SUB-Q INJECTION SQ ONE (10:00)
[2022-11-11 10:23] LABS: ANISOCYTOSIS 1+; MACROCYTOSIS 0
[2022-11-11 10:26] LABS: POTASSIUM 3.6 mmol/L (3.5-5.1)
[2022-11-11 10:27] LABS: BLOOD UREA NITROGEN 16.1 mg/dL (7-18)
[2022-11-11 10:28] LABS: ALBUMIN 2.6 g/dl (3.4-5.0)
[2022-11-11 10:30] LABS: BILIRUBIN,DIRECT 0.1 mg/dL (0.0-0.2); CREATININE 0.8 mg/dL (0.55-1.3)
[2022-11-11 10:32] LABS: BILIRUBIN,TOTAL 0.3 mg/dL (0.2-1); TOT PROT 10.9 g/dl (6.4-8.2)
[2022-11-11 15:12] VITALS: BP 126/68; PULSE 81; RESP 18; TEMP 98.5
== END 2022-11-11 12:05 | disposition home or self-care (01) ==
LOC: JONCCHEMO 09:14 → J7W 09:31 → JONCCHEMO 12:05
PROVIDERS: ATTEND Internal Medicine Hematology & Oncology
DX: Z51.11 Encounter for antineoplastic chemotherapy (principal); C90.00 Multiple myeloma not having achieved remission
CPT/HCPCS: 36415; 80048; 80076; 85025; 86850; 86870; 86900; 86901; 86902; 96401; J9041

== ENCOUNTER 2022-11-18 09:15 | Day surgery (SDC) | payer OTHER ==
[2022-11-18] MEDS ORDERED: DEXAMETHASONE 4 MG TABLET (FP) PO ONE (09:30)
[2022-11-18] MEDS ORDERED: diphenhydrAMINE HCL 25 MG CAPSULE (FP) PO ONE (09:30)
[2022-11-18] MEDS ORDERED: ACETAMINOPHEN 325 MG TABLET (FP) PO ONE (09:30)
[2022-11-18] MEDS ORDERED: BORTEZOMIB 2.5 MG/ML SUB-Q INJECTION SQ ONE (10:00)
[2022-11-18 10:02] LABS: HEMATOCRIT 22.2 % (32.4-45.2); HEMOGLOBIN 7.5 GM/dL (10.7-15.3); MCH 33.6 pg (25.7-33.7); MEAN CELL VOLUME 98.7 fl (80-96); MEAN PLT VOLUME 7.9 fl (7.5-11.1); PLATELET COUNT 172 10^3/uL (134-434); RBC 2.25 M/mm3 (3.60-5.2); RDW 28.8 % (11.6-15.6); WHITE BLOOD COUNT 3.2 K/mm3 (4.0-10.0)
[2022-11-18] MEDS ORDERED: DARATUMUMAB-HYALURONIDASE-FIHJ (FASPRO) 15 ML VIAL SQ ONE (10:15)
[2022-11-18 10:25] LABS: POTASSIUM 3.7 mmol/L (3.5-5.1)
[2022-11-18 10:28] LABS: CALCIUM 10.4 mg/dL (8.5-10.1)
[2022-11-18 10:29] LABS: ALBUMIN 2.6 g/dl (3.4-5.0)
[2022-11-18 10:31] LABS: BILIRUBIN,DIRECT 0.1 mg/dL (0.0-0.2); CREATININE 0.9 mg/dL (0.55-1.3)
[2022-11-18 10:32] LABS: BILIRUBIN,TOTAL 0.3 mg/dL (0.2-1)
[2022-11-18 10:33] LABS: ANISOCYTOSIS 0; HELMET CELLS 0; HOWELL-JOLLY BODIES 0; MACROCYTOSIS 0; OVALOCYTE 0; ROULEAU 0; SICKELED CELLS 0; TARGET CELLS 0; TEAR DROP CELLS 0; TOXIC GRANULATION 0
[2022-11-18 14:43] VITALS: BP 123/61; PULSE 88; RESP 20; TEMP 97.5
== END 2022-11-18 13:30 | disposition home or self-care (01) ==
LOC: JONCCHEMO 09:15 → J7W 09:16 → JONCCHEMO 13:30
PROVIDERS: ATTEND Internal Medicine Hematology & Oncology
DX: Z51.11 Encounter for antineoplastic chemotherapy (principal); C90.00 Multiple myeloma not having achieved remission
CPT/HCPCS: 36415; 80048; 80076; 85025; 86850; 86870; 86900; 86901; 86902; 96401; J9041; J9144

== ENCOUNTER 2022-11-25 09:02 | Day surgery (SDC) | payer OTHER ==
[~2022-11-25 09:02] MED LIST changes: -ACETAMINOPHEN 325 MG TABLET (FP) PO ONE; +BORTEZOMIB 2.5 MG/ML SUB-Q INJECTION SQ ONE
[2022-11-25 09:25] LABS: BASO % 0.3 % (0-2.0); EOS % 0.8 % (0-4.5); HEMATOCRIT 20.6 % (32.4-45.2); LYMPH % 31.2 % (8-40); MCH 34.2 pg (25.7-33.7); MCHC 33.7 g/dl (32.0-36.0); MEAN CELL VOLUME 101.7 fl (80-96); MEAN PLT VOLUME 7.2 fl (7.5-11.1); MONO % 13.3 % (3.8-10.2); NEUT % 54.4 % (42.8-82.8); PLATELET COUNT 230 10^3/uL (134-434); RBC 2.02 M/mm3 (3.60-5.2); RDW 29.1 % (11.6-15.6); WHITE BLOOD COUNT 3.8 K/mm3 (4.0-10.0)
[2022-11-25 09:37] LABS: HEMOGLOBIN 6.9 GM/dL (10.7-15.3)
[2022-11-25 09:42] LABS: POTASSIUM 3.6 mmol/L (3.5-5.1)
[2022-11-25 09:44] LABS: CALCIUM 10.3 mg/dL (8.5-10.1)
[2022-11-25 09:45] LABS: ALBUMIN 2.6 g/dl (3.4-5.0)
[2022-11-25 09:47] LABS: BILIRUBIN,DIRECT 0.1 mg/dL (0.0-0.2)
[2022-11-25 09:48] LABS: CREATININE 1.1 mg/dL (0.55-1.3)
[2022-11-25 09:49] LABS: TOT PROT 10.6 g/dl (6.4-8.2)
[2022-11-25 09:50] LABS: BILIRUBIN,TOTAL 0.2 mg/dL (0.2-1)
[2022-11-25 12:12] LABS: ANISOCYTOSIS 2+; MACROCYTOSIS 2+; OVALOCYTE 2+; TEAR DROP CELLS 1+
[2022-11-25 14:20] VITALS: BP 101/51; PULSE 78; RESP 18; TEMP 98.4
== END 2022-11-25 11:50 | disposition home or self-care (01) ==
LOC: JONCCHEMO 09:02 → J7W 09:03 → JONCCHEMO 11:50
PROVIDERS: ATTEND Internal Medicine Hematology & Oncology
DX: Z51.11 Encounter for antineoplastic chemotherapy (principal); C90.00 Multiple myeloma not having achieved remission
CPT/HCPCS: 36415; 80048; 80076; 85025; 86870; 86902; 96401; J9041

== ENCOUNTER 2022-11-29 00:42 | Inpatient (IN) | payer OTHER ==
[2022-11-29 01:45] LABS: BASO % 0.5 % (0-2.0); HEMATOCRIT 19.7 % (32.4-45.2); LYMPH % 10.5 % (8-40); MCH 34.6 pg (25.7-33.7); MCHC 34.8 g/dl (32.0-36.0); MEAN CELL VOLUME 99.4 fl (80-96); MEAN PLT VOLUME 8.8 fl (7.5-11.1); MONO % 12.2 % (3.8-10.2); NEUT % 76.8 % (42.8-82.8); PLATELET COUNT 219 10^3/uL (134-434); RBC 1.98 M/mm3 (3.60-5.2); RDW 29.1 % (11.6-15.6); WHITE BLOOD COUNT 4.4 K/mm3 (4.0-10.0)
[2022-11-29 02:03] LABS: CHLORIDE 103 mmol/L (98-107); SODIUM 125 mmol/L (136-145)
[2022-11-29 02:05] LABS: ALBUMIN 2.2 g/dl (3.4-5.0); BLOOD UREA NITROGEN 16.5 mg/dL (7-18); CALCIUM 10.4 mg/dL (8.5-10.1); CO2 27 mmol/L (21-32); GLUCOSE,RANDOM 87 mg/dL (74-106)
[2022-11-29 02:09] LABS: CREATININE 0.9 mg/dL (0.55-1.3)
[2022-11-29 02:10] LABS: TOT PROT 11.6 g/dl (6.4-8.2)
[2022-11-29 02:11] LABS: HEMOGLOBIN 6.8 GM/dL (10.7-15.3)
[2022-11-29 02:12] LABS: ALK PHOS 29 U/L (45-117)
[2022-11-29 02:28] LABS: ANION GAP -5 MMOL/L (8-16); POTASSIUM > 10.0 mmol/L (3.5-5.1); SGOT/AST 169 U/L (15-37); SGPT/ALT 32 U/L (13-61)
[2022-11-29] MEDS ORDERED: ACETAMINOPHEN 1000 MG/100 ML BAG IVPB ONE (02:42)
[2022-11-29] MEDS ORDERED: ACETAMINOPHEN INJECTION 100 ML IVPB ONE (02:44)
[2022-11-29 03:24] LABS: POTASSIUM 3.6 mmol/L (3.5-5.1)
[2022-11-29 03:25] LABS: BLOOD UREA NITROGEN 16.4 mg/dL (7-18); CALCIUM 10.7 mg/dL (8.5-10.1)
[2022-11-29 03:29] LABS: CREATININE 0.9 mg/dL (0.55-1.3)
[2022-11-29 06:14] LABS: ANISOCYTOSIS 3+; MACROCYTOSIS 0; ROULEAU 1+
[2022-11-29] MEDS ORDERED: CEFTRIAXONE 1 GM in DEXTROSE 5%-WATER - 100 ML IVPB ONE (06:44)
[2022-11-29] MEDS ORDERED: AZITHROMYCIN IVPB 500 MG in DEXTROSE 5%-WATER - 250 ML IVPB ONE (06:44)
[2022-11-29] MEDS ORDERED: CEFTRIAXONE 1 GM/50 ML BAG ONE (07:43)
[2022-11-29] MEDS ORDERED: AZITHROMYCIN IVPB 500 MG/250 ML BAG IVPB ONE (07:43)
[2022-11-29] MEDS ORDERED: traMADol HCL 50 MG TABLET ONE (11:35)
[2022-11-29] MEDS ORDERED: LOSARTAN POTASSIUM 50 MG TABLET ONE (11:35)
[2022-11-29] MEDS: LOSARTAN POTASSIUM 50 MG TABLET PO SCH (11:37)
[2022-11-29] MEDS: traMADol HCL 50 MG TABLET PO PRN (11:37)
[2022-11-29] MEDS: SODIUM BICARBONATE 325 MG TABLET PO SCH (12:11)
[2022-11-29] MEDS ORDERED: ACETAMINOPHEN 325 MG TABLET (FP) ONE (13:56)
[2022-11-29] MEDS ORDERED: hydrALAZINE HCL 25 MG TABLET (FP) ONE (13:56)
[2022-11-29] MEDS: ACETAMINOPHEN 325 MG TABLET (FP) PO PRN (14:11)
[2022-11-29] MEDS: hydrALAZINE HCL 25 MG TABLET (FP) PO SCH (14:11)
[2022-11-29] MEDS ORDERED: guaiFENesin/CODEINE 10 ML UNIT-DOSE CUPS ONE (21:28)
[2022-11-29] MEDS: guaiFENesin/D-METHORPHAN HB 10 ML UNIT-DOSE CUPS PO PRN (21:30)
[2022-11-30] MEDS: SODIUM BICARBONATE 325 MG TABLET PO SCH ×3 (00:16→21:17)
[2022-11-30] MEDS: hydrALAZINE HCL 25 MG TABLET (FP) PO SCH ×4 (00:16→21:21)
[2022-11-30] MEDS: ACETAMINOPHEN 325 MG TABLET (FP) PO PRN (06:10)
[2022-11-30] MEDS: guaiFENesin/D-METHORPHAN HB 10 ML UNIT-DOSE CUPS PO PRN (06:10)
[2022-11-30] MEDS ORDERED: REMDESIVIR 200 MG in SODIUM CHLORIDE 250 ML IVPB ONE (10:00)
[2022-11-30] MEDS: LOSARTAN POTASSIUM 50 MG TABLET PO SCH (10:01)
[2022-11-30 10:14] LABS: HEMATOCRIT 24.4 % (32.4-45.2); HEMOGLOBIN 8.3 GM/dL (10.7-15.3); MCH 33.5 pg (25.7-33.7); MCHC 34.2 g/dl (32.0-36.0); MEAN PLT VOLUME 7.5 fl (7.5-11.1); PLATELET COUNT 136 10^3/uL (134-434); RBC 2.49 M/mm3 (3.60-5.2); RDW 27.7 % (11.6-15.6); WHITE BLOOD COUNT 4.9 K/mm3 (4.0-10.0)
[2022-11-30 11:15] LABS: POTASSIUM 3.3 mmol/L (3.5-5.1)
[2022-11-30 11:19] LABS: ALBUMIN 2.4 g/dl (3.4-5.0); BLOOD UREA NITROGEN 13.8 mg/dL (7-18)
[2022-11-30 11:23] LABS: BILIRUBIN,TOTAL 0.7 mg/dL (0.2-1); TOT PROT 10.6 g/dl (6.4-8.2)
[2022-11-30] MEDS: CEFTRIAXONE 1 GM in DEXTROSE 5%-WATER - 50 ML IVPB SCH (11:58)
[2022-11-30] MEDS: traMADol HCL 50 MG TABLET PO PRN ×2 (14:48→21:32)
[2022-11-30 14:52] VITALS: RESP 18
[2022-11-30] MEDS ORDERED: POTASSIUM CHLORIDE TABS 10 MEQ TABLET.ER (FP) PO ONE (15:18)
[2022-11-30] MEDS ORDERED: POTASSIUM CHLORIDE ORAL LIQUID 20 MEQ/15 ML PO ONE (16:39)
[2022-11-30] MEDS: ALBUTEROL SO4 2.5/IPRATROPIUM 0.5 INH SOL 3 ML VIAL.NEB. NEB SCH (19:55)
[2022-11-30] MEDS: BUDESONIDE/FORMETEROL FUMARATE 80/4.5 mcg INHALER IH SCH (21:17)
[2022-12-01] MEDS: hydrALAZINE HCL 25 MG TABLET (FP) PO SCH ×3 (05:04→22:35)
[2022-12-01] MEDS: traMADol HCL 50 MG TABLET PO PRN ×2 (05:04→20:24)
[2022-12-01] MEDS: ALBUTEROL SO4 2.5/IPRATROPIUM 0.5 INH SOL 3 ML VIAL.NEB. NEB SCH ×4 (07:35→20:18)
[2022-12-01] MEDS ORDERED: REMDESIVIR 200 MG in SODIUM CHLORIDE 250 ML IVPB ONE (09:00)
[2022-12-01] MEDS: CEFTRIAXONE 1 GM in DEXTROSE 5%-WATER - 50 ML IVPB SCH (09:13)
[2022-12-01] MEDS: LOSARTAN POTASSIUM 50 MG TABLET PO SCH (09:13)
[2022-12-01] MEDS: SODIUM BICARBONATE 325 MG TABLET PO SCH ×2 (09:14→22:34)
[2022-12-01] MEDS: DEXAMETHASONE SOD PHOSPHATE 4 MG/1 ML VIAL IVPUSH SCH (10:03)
[2022-12-01] MEDS: REMDESIVIR 100 MG in SODIUM CHLORIDE 250 ML IVPB SCH (10:08)
[2022-12-01] MEDS: BUDESONIDE/FORMETEROL FUMARATE 80/4.5 mcg INHALER IH SCH ×2 (10:13→22:36)
[2022-12-01 11:28] LABS: POTASSIUM 3.6 mmol/L (3.5-5.1)
[2022-12-01 11:41] LABS: ALBUMIN 2.3 g/dl (3.4-5.0)
[2022-12-01 11:42] LABS: BLOOD UREA NITROGEN 12.7 mg/dL (7-18); CALCIUM 9.6 mg/dL (8.5-10.1)
[2022-12-01 11:44] LABS: CREATININE 0.8 mg/dL (0.55-1.3)
[2022-12-01 11:46] LABS: BILIRUBIN,TOTAL 0.3 mg/dL (0.2-1); TOT PROT 10.3 g/dl (6.4-8.2)
[2022-12-01 13:01] VITALS: BMI 18.8
[2022-12-01] MEDS ORDERED: FAMOTIDINE 20 MG TABLET PO SCH (22:00)
[2022-12-01] MEDS ORDERED: SENNOSIDES 8.6MG TABLET (FP) PO SCH (22:00)
[2022-12-01] MEDS: CALCITRIOL 0.25 MCG CAPSULE (FP) PO SCH (22:33)
[2022-12-02 04:31] VITALS: BP 135/80; TEMP 99
[2022-12-02] MEDS: hydrALAZINE HCL 25 MG TABLET (FP) PO SCH ×2 (06:41→13:50)
[2022-12-02] MEDS: ALBUTEROL SO4 2.5/IPRATROPIUM 0.5 INH SOL 3 ML VIAL.NEB. NEB SCH ×3 (07:40→16:05)
[2022-12-02 09:29] VITALS: PULSE 85
[2022-12-02] MEDS ORDERED: ASPIRIN COATED 81 MG TABLET.EC PO SCH (10:00)
[2022-12-02] MEDS ORDERED: amLODIPine BESYLATE 10 MG TABLET (FP) PO SCH (10:00)
[2022-12-02] MEDS: LOSARTAN POTASSIUM 50 MG TABLET PO SCH (10:52)
[2022-12-02] MEDS: CALCITRIOL 0.25 MCG CAPSULE (FP) PO SCH (10:52)
[2022-12-02] MEDS: SODIUM BICARBONATE 325 MG TABLET PO SCH (10:52)
[2022-12-02] MEDS: REMDESIVIR 100 MG in SODIUM CHLORIDE 250 ML IVPB SCH (10:53)
[2022-12-02] MEDS: CEFTRIAXONE 1 GM in DEXTROSE 5%-WATER - 50 ML IVPB SCH (10:53)
[2022-12-02] MEDS: BUDESONIDE/FORMETEROL FUMARATE 80/4.5 mcg INHALER IH SCH (10:54)
[2022-12-02] MEDS: DEXAMETHASONE SOD PHOSPHATE 4 MG/1 ML VIAL IVPUSH SCH (13:02)
[2022-12-02] MEDS: traMADol HCL 50 MG TABLET PO PRN (17:54)
== END 2022-12-02 19:03 | disposition home health service (06) | DRG 178 ==
LOC: JER 00:42 → JERBED 06:06 → J6S 23:16
PROVIDERS: ADMIT Family Medicine; ATTEND Family Medicine
PROC: XW033E5 Introduction of Remdesivir Anti-infective into Peripheral Vein, Percutaneous Approach, New Technology Group 5 (ICD-10-PCS; principal; 2022-11-29)
PROC: 30233N1 Transfusion of Nonautologous Red Blood Cells into Peripheral Vein, Percutaneous Approach (ICD-10-PCS; 2022-11-29)
DX: U07.1 COVID-19 (principal); C90.00 Multiple myeloma not having achieved remission; E87.1 Hypo-osmolality and hyponatremia; J98.11 Atelectasis; D64.9 Anemia, unspecified; R09.02 Hypoxemia
CPT/HCPCS: 0241U-QW; 36415; 36430; 71045-TC-FY; 71275-TC; 80048; 80053; 82436; 83930; 83935; 84133; 84300; 84484; 85025; 85027; 85379; 86140; 86850; 86870; 86900; 86901; 86902; 86922; 93005; 93010; 94640; 94761; 97116-GP; 97162-GP; 99285-25; C9399; P9058; Q9967

== ENCOUNTER 2022-12-09 08:18 | Day surgery (SDC) | payer OTHER ==
[2022-12-09 08:51] LABS: BASO % 0.1 % (0-2.0); EOS % 0.2 % (0-4.5); HEMATOCRIT 24.4 % (32.4-45.2); HEMOGLOBIN 8.1 GM/dL (10.7-15.3); LYMPH % 28.3 % (8-40); MCH 33.6 pg (25.7-33.7); MCHC 33.2 g/dl (32.0-36.0); MEAN CELL VOLUME 101.3 fl (80-96); MEAN PLT VOLUME 6.8 fl (7.5-11.1); MONO % 6.7 % (3.8-10.2); NEUT % 64.7 % (42.8-82.8); PLATELET COUNT 237 10^3/uL (134-434); RBC 2.41 M/mm3 (3.60-5.2); RDW 26.6 % (11.6-15.6); WHITE BLOOD COUNT 3.2 K/mm3 (4.0-10.0)
[2022-12-09 09:14] LABS: ALBUMIN 2.4 g/dl (3.4-5.0); BLOOD UREA NITROGEN 15.4 mg/dL (7-18)
[2022-12-09 09:16] LABS: BILIRUBIN,DIRECT 0.1 mg/dL (0.0-0.2)
[2022-12-09 09:18] LABS: CREATININE 0.9 mg/dL (0.55-1.3)
[2022-12-09 09:19] LABS: BILIRUBIN,TOTAL 0.2 mg/dL (0.2-1); TOT PROT 11.6 g/dl (6.4-8.2)
[2022-12-09 09:22] LABS: CALCIUM 8.1 mg/dL (8.5-10.1)
[2022-12-09] MEDS ORDERED: diphenhydrAMINE HCL 25 MG CAPSULE (FP) PO ONE (09:30)
[2022-12-09] MEDS ORDERED: ACETAMINOPHEN 325 MG TABLET (FP) PO ONE (09:30)
[2022-12-09] MEDS ORDERED: DEXAMETHASONE 4 MG TABLET (FP) PO ONE (09:30)
[2022-12-09] MEDS ORDERED: BORTEZOMIB 2.5 MG/ML SUB-Q INJECTION SQ ONE (10:00)
[2022-12-09] MEDS ORDERED: DARATUMUMAB-HYALURONIDASE-FIHJ (FASPRO) 15 ML VIAL SQ ONE (10:00)
[2022-12-09 12:09] LABS: ANISOCYTOSIS 2+; MACROCYTOSIS 1+; OVALOCYTE 2+; TEAR DROP CELLS 1+
[2022-12-09 12:59] VITALS: BP 118/77; PULSE 76; RESP 20; TEMP 98.2
== END 2022-12-09 13:30 | disposition home or self-care (01) ==
LOC: JONCCHEMO 08:18 → J7W 08:22 → JONCCHEMO 13:30
PROVIDERS: ATTEND Internal Medicine Hematology & Oncology
DX: Z51.11 Encounter for antineoplastic chemotherapy (principal); C90.00 Multiple myeloma not having achieved remission
CPT/HCPCS: 36415; 80048; 80076; 85025; 86850; 86870; 86900; 86901; 86902; 96401; J9041; J9144

== ENCOUNTER 2022-12-13 13:11 | Inpatient (IN) | payer OTHER ==
[2022-12-13] MEDS ORDERED: FAMOTIDINE 20 MG/50 ML IVPB 20 MG/50 ML MG IVPB ONE ×2 (15:12→17:59)
[2022-12-13] MEDS ORDERED: MAG HYDROX/AL HYDROX/SIMETH 30 ML UNIT-DOSE CUP PO ONE (15:12)
[2022-12-13] MEDS ORDERED: VANCOMYCIN 1,000 MG in DEXTROSE 5%-WATER - 250 ML IVPB ONE (15:12)
[2022-12-13] MEDS ORDERED: ACETAMINOPHEN 1000 MG/100 ML BAG IVPB ONE (15:12)
[2022-12-13] MEDS ORDERED: LACTATED RINGERS SOLUTION 1000 ML INFUS.BAG IV ONE (15:12)
[2022-12-13] MEDS ORDERED: AZITHROMYCIN IVPB 500 MG in DEXTROSE 5%-WATER - 250 ML IVPB ONE (15:44)
[2022-12-13] MEDS ORDERED: MEROPENEM 1 GM in DEXTROSE 5%-WATER 100 ML IVPB ONE (15:45)
[2022-12-13 16:42] LABS: BASO % 0.1 % (0-2.0); EOS % 0.4 % (0-4.5); HEMOGLOBIN 7.6 GM/dL (10.7-15.3); LYMPH % 13.1 % (8-40); MCH 34.4 pg (25.7-33.7); MCHC 34.6 g/dl (32.0-36.0); MEAN CELL VOLUME 99.6 fl (80-96); MONO % 3.6 % (3.8-10.2); NEUT % 82.8 % (42.8-82.8); PLATELET COUNT 174 10^3/uL (134-434); RBC 2.21 M/mm3 (3.60-5.2); RDW 27.1 % (11.6-15.6); WHITE BLOOD COUNT 5.1 K/mm3 (4.0-10.0)
[2022-12-13 16:43] LABS: INR 1.29 (0.83-1.09); PROTHROMBIN TIME (PATIENT) 14.9 SEC (9.7-13.0)
[2022-12-13 16:46] LABS: ACTIVATED PTT 26.7 SECONDS (25.2-36.5)
[2022-12-13 16:59] LABS: ALBUMIN 2.2 g/dl (3.4-5.0); BLOOD UREA NITROGEN 18.4 mg/dL (7-18); MAGNESIUM 1.2 mg/dL (1.8-2.4)
[2022-12-13 17:03] LABS: BILIRUBIN,TOTAL 0.5 mg/dL (0.2-1); TOT PROT 10.8 g/dl (6.4-8.2)
[2022-12-13 17:07] LABS: N-TERMINAL BNP 196.1 pg/ml (5-125)
[2022-12-13 17:13] LABS: CALCIUM 9.5 mg/dL (8.5-10.1)
[2022-12-13] MEDS ORDERED: MAGNESIUM SULF 50% (8.12 MEQ/2 ML-1 GM VIAL) IVPB ONE ×2 (17:26→17:56)
[2022-12-13] MEDS ORDERED: MEROPENEM 1 GM VIAL (RESTRICTED TO ID) IVPB ONE (17:58)
[2022-12-13] MEDS ORDERED: MAGNESIUM SULF 50% (8.12 MEQ/2 ML-1 GM VIAL) ONE (17:58)
[2022-12-13] MEDS ORDERED: ACETAMINOPHEN INJECTION 100 ML IVPB ONE (17:59)
[2022-12-13] MEDS ORDERED: MAG HYDROX/AL HYDROX/SIMETH 30 ML UNIT-DOSE CUP ONE (17:59)
[2022-12-13] MEDS ORDERED: VANCOMYCIN 1 GRAM (PRE-DOCKED) 1,000 MG/250 ML BAG IVPB ONE ×2 (17:59→19:50)
[2022-12-13] MEDS ORDERED: AZITHROMYCIN IVPB 500 MG/250 ML BAG IVPB ONE (17:59)
[2022-12-13 18:44] LABS: POTASSIUM 3.4 mmol/L (3.5-5.1)
[2022-12-13 18:46] LABS: CALCIUM 9.3 mg/dL (8.5-10.1)
[2022-12-13 18:47] LABS: ALBUMIN 2.2 g/dl (3.4-5.0); BLOOD UREA NITROGEN 18.2 mg/dL (7-18)
[2022-12-13] MEDS ORDERED: POTASSIUM CHLORIDE ORAL LIQUID 20 MEQ/15 ML PO ONE (18:48)
[2022-12-13 18:51] LABS: BILIRUBIN,TOTAL 0.6 mg/dL (0.2-1); TOT PROT 10.4 g/dl (6.4-8.2)
[2022-12-13] MEDS ORDERED: MAGNESIUM SULFATE IN WATER 2 GM/50 ML IVPB IVPB ONE (18:52)
[2022-12-13] MEDS ORDERED: POTASSIUM CHLORIDE ORAL LIQUID 20 MEQ/15 ML ONE (18:52)
[2022-12-13 19:38] LABS: ANISOCYTOSIS 2+; MACROCYTOSIS 2+
[2022-12-14] MEDS ORDERED: ACETAMINOPHEN 325 MG TABLET (FP) PO PRN (00:36)
[2022-12-14] MEDS ORDERED: MAGNESIUM OXIDE 400 MG TABLET (FP) PO ONE ×2 (00:44→06:00)
[2022-12-14] MEDS ORDERED: ACETAMINOPHEN 1000 MG/100 ML BAG IVPB PRN ×2 (00:47→03:10)
[2022-12-14] MEDS ORDERED: MAGNESIUM OXIDE 400 MG TABLET (FP) ONE (01:32)
[2022-12-14] MEDS ORDERED: PATIENT'S OWN MEDICATION (NON-FORMULARY) (Melatonin [Melatonin] 3 MG Tablet) PO PRN (01:34)
[2022-12-14] MEDS: SODIUM CHLORIDE 1,000 ML IV SCH (01:43)
[2022-12-14] MEDS ORDERED: MEROPENEM 1 GM VIAL (RESTRICTED TO ID) IVPB ONE ×3 (02:52→17:07)
[2022-12-14] MEDS: MEROPENEM 1 GM in DEXTROSE 5%-WATER 100 ML IVPB SCH ×3 (03:05→17:45)
[2022-12-14] MEDS ORDERED: ALBUTEROL SO4 HFA INHALER IH PRN (04:12)
[2022-12-14] MEDS: ACETAMINOPHEN 325 MG TABLET (FP) PO PRN (05:23)
[2022-12-14 07:41] LABS: BASO % 0.1 % (0-2.0); EOS % 1.2 % (0-4.5); HEMATOCRIT 24.3 % (32.4-45.2); HEMOGLOBIN 8.2 GM/dL (10.7-15.3); LYMPH % 9.4 % (8-40); MCHC 33.9 g/dl (32.0-36.0); MEAN CELL VOLUME 97.3 fl (80-96); MEAN PLT VOLUME 8.1 fl (7.5-11.1); MONO % 3.2 % (3.8-10.2); NEUT % 86.1 % (42.8-82.8); PLATELET COUNT 160 10^3/uL (134-434); RBC 2.49 M/mm3 (3.60-5.2); WHITE BLOOD COUNT 4.2 K/mm3 (4.0-10.0)
[2022-12-14 07:53] LABS: POTASSIUM 3.9 mmol/L (3.5-5.1)
[2022-12-14 07:56] LABS: BLOOD UREA NITROGEN 13.7 mg/dL (7-18); MAGNESIUM 1.9 mg/dL (1.8-2.4)
[2022-12-14 07:59] LABS: CREATININE 0.8 mg/dL (0.55-1.3); PHOSPHOROUS 2.7 mg/dL (2.5-4.9)
[2022-12-14] MEDS ORDERED: MELATONIN 5 MG, MELATONIN 1 MG PO PRN (08:09)
[2022-12-14] MEDS ORDERED: VANCOMYCIN/WATER FOR INJ (PEG) 750 MG/150 ML BAG IVPB SCH (09:00)
[2022-12-14] MEDS ORDERED: VANCOMYCIN/WATER FOR INJ (PEG) 750 MG/150 ML BAG IVPB ONE (09:00)
[2022-12-14] MEDS ORDERED: POTASSIUM CHLORIDE TABS 20 MEQ TABLET.ER (FP) PO ONE (09:35)
[2022-12-14] MEDS ORDERED: valACYclovir HCL 500 MG TABLET (FP) ONE (09:35)
[2022-12-14] MEDS ORDERED: ASPIRIN 81 MG CHEWABLE TABLETS ONE (09:35)
[2022-12-14] MEDS ORDERED: CALCITRIOL 0.5 MCG PO SCH (10:00)
[2022-12-14] MEDS: ASPIRIN 81 MG CHEWABLE TABLETS PO SCH (10:07)
[2022-12-14] MEDS: valACYclovir HCL 500 MG TABLET (FP) PO SCH (10:07)
[2022-12-14] MEDS: POTASSIUM CHLORIDE TABS 20 MEQ TABLET.ER (FP) PO SCH (10:07)
[2022-12-14] MEDS: CALCITRIOL 0.25 MCG CAPSULE (FP) PO SCH ×2 (12:45→23:00)
[2022-12-14] MEDS ORDERED: AZTREONAM 1 GM in DEXTROSE 5%-WATER - 50 ML IVPB SCH (13:30)
[2022-12-14] MEDS ORDERED: REMDESIVIR 200 MG in SODIUM CHLORIDE 250 ML IVPB ONE (14:45)
[2022-12-14] MEDS ORDERED: traMADol HCL 50 MG TABLET ONE ×2 (17:07→23:08)
[2022-12-14] MEDS: traMADol HCL 50 MG TABLET PO PRN ×2 (17:17→23:26)
[2022-12-14] MEDS ORDERED: FAMOTIDINE 20 MG TABLET ONE (22:44)
[2022-12-14] MEDS ORDERED: DOCUSATE SODIUM 100 MG CAPSULE (FP) PO ONE (22:45)
[2022-12-14] MEDS ORDERED: SENNOSIDES 8.6MG TABLET (FP) PO ONE (22:45)
[2022-12-14] MEDS: SENNOSIDES 8.6MG TABLET (FP) PO SCH (23:00)
[2022-12-14] MEDS: FAMOTIDINE 20 MG TABLET PO SCH (23:00)
[2022-12-14] MEDS: DOCUSATE SODIUM 100 MG CAPSULE (FP) PO SCH (23:00)
[2022-12-15] MEDS ORDERED: ACETAMINOPHEN 325 MG TABLET (FP) PO PRN (00:36)
[2022-12-15] MEDS: SODIUM CHLORIDE 1,000 ML IV SCH (00:45)
[2022-12-15] MEDS ORDERED: MEROPENEM 1 GM in DEXTROSE 5%-WATER 100 ML IVPB SCH (02:00)
[2022-12-15] MEDS: MEROPENEM 1 GM in DEXTROSE 5%-WATER 100 ML IVPB SCH ×3 (02:22→18:07)
[2022-12-15] MEDS ORDERED: MEROPENEM 1 GM VIAL (RESTRICTED TO ID) IVPB ONE ×2 (03:07→08:41)
[2022-12-15] MEDS: CALCITRIOL 0.25 MCG CAPSULE (FP) PO SCH ×2 (09:07→22:35)
[2022-12-15] MEDS: POTASSIUM CHLORIDE TABS 20 MEQ TABLET.ER (FP) PO SCH (09:07)
[2022-12-15] MEDS: ASPIRIN 81 MG CHEWABLE TABLETS PO SCH (09:07)
[2022-12-15] MEDS: valACYclovir HCL 500 MG TABLET (FP) PO SCH (09:07)
[2022-12-15] MEDS: REMDESIVIR 100 MG in SODIUM CHLORIDE 250 ML IVPB SCH (12:06)
[2022-12-15] MEDS ORDERED: guaiFENesin 200 MG/10 ML 10 ML UNIT-DOSE CUPS PO PRN (12:12)
[2022-12-15 13:43] LABS: BASO % 0.1 % (0-2.0); EOS % 0.9 % (0-4.5); HEMATOCRIT 23.1 % (32.4-45.2); LYMPH % 14.9 % (8-40); MCH 33.4 pg (25.7-33.7); MCHC 34.6 g/dl (32.0-36.0); MEAN CELL VOLUME 96.4 fl (80-96); MEAN PLT VOLUME 8.5 fl (7.5-11.1); MONO % 4.9 % (3.8-10.2); NEUT % 79.2 % (42.8-82.8); PLATELET COUNT 151 10^3/uL (134-434); RDW 26.8 % (11.6-15.6); WHITE BLOOD COUNT 3.3 K/mm3 (4.0-10.0)
[2022-12-15 13:59] LABS: POTASSIUM 3.8 mmol/L (3.5-5.1)
[2022-12-15 14:01] LABS: CALCIUM 9.8 mg/dL (8.5-10.1)
[2022-12-15 14:02] LABS: ALBUMIN 1.9 g/dl (3.4-5.0); BLOOD UREA NITROGEN 16.2 mg/dL (7-18)
[2022-12-15 14:06] LABS: BILIRUBIN,TOTAL 0.4 mg/dL (0.2-1); TOT PROT 9.4 g/dl (6.4-8.2)
[2022-12-15 14:18] LABS: CREATININE 0.8 mg/dL (0.55-1.3)
[2022-12-15] MEDS ORDERED: amLODIPine BESYLATE 10 MG TABLET (FP) PO ONE (17:54)
[2022-12-15] MEDS ORDERED: amLODIPine BESYLATE 10 MG TABLET (FP) ONE (18:40)
[2022-12-15] MEDS: DOCUSATE SODIUM 100 MG CAPSULE (FP) PO SCH (22:34)
[2022-12-15] MEDS: SENNOSIDES 8.6MG TABLET (FP) PO SCH (22:34)
[2022-12-15] MEDS: FAMOTIDINE 20 MG TABLET PO SCH (22:34)
[2022-12-15] MEDS: traMADol HCL 50 MG TABLET PO PRN (23:37)
[2022-12-16 00:29] VITALS: BMI 17.2
[2022-12-16] MEDS: MEROPENEM 1 GM in DEXTROSE 5%-WATER 100 ML IVPB SCH ×3 (02:15→17:44)
[2022-12-16 09:05] LABS: BASO % 0.2 % (0-2.0); HEMATOCRIT 25.9 % (32.4-45.2); LYMPH % 21.3 % (8-40); MCH 33.5 pg (25.7-33.7); MCHC 34.9 g/dl (32.0-36.0); MEAN CELL VOLUME 96.1 fl (80-96); MEAN PLT VOLUME 8.3 fl (7.5-11.1); MONO % 6.6 % (3.8-10.2); NEUT % 70.9 % (42.8-82.8); PLATELET COUNT 205 10^3/uL (134-434); RDW 26.8 % (11.6-15.6); WHITE BLOOD COUNT 3.1 K/mm3 (4.0-10.0)
[2022-12-16 09:24] LABS: POTASSIUM 3.7 mmol/L (3.5-5.1)
[2022-12-16 09:27] LABS: CALCIUM 10.1 mg/dL (8.5-10.1)
[2022-12-16 09:28] LABS: BLOOD UREA NITROGEN 16.7 mg/dL (7-18)
[2022-12-16 09:31] LABS: CREATININE 0.9 mg/dL (0.55-1.3)
[2022-12-16 09:32] LABS: BILIRUBIN,TOTAL 0.4 mg/dL (0.2-1); TOT PROT 11.2 g/dl (6.4-8.2)
[2022-12-16] MEDS: POTASSIUM CHLORIDE TABS 20 MEQ TABLET.ER (FP) PO SCH (09:33)
[2022-12-16] MEDS: REMDESIVIR 100 MG in SODIUM CHLORIDE 250 ML IVPB SCH (09:33)
[2022-12-16] MEDS: ASPIRIN 81 MG CHEWABLE TABLETS PO SCH (09:33)
[2022-12-16] MEDS: CALCITRIOL 0.25 MCG CAPSULE (FP) PO SCH ×2 (09:33→21:20)
[2022-12-16] MEDS: valACYclovir HCL 500 MG TABLET (FP) PO SCH (09:34)
[2022-12-16 09:40] LABS: ALBUMIN 2.4 g/dl (3.4-5.0)
[2022-12-16] MEDS: DOCUSATE SODIUM 100 MG CAPSULE (FP) PO SCH (21:19)
[2022-12-16] MEDS: SENNOSIDES 8.6MG TABLET (FP) PO SCH (21:20)
[2022-12-16] MEDS: FAMOTIDINE 20 MG TABLET PO SCH (21:20)
[2022-12-17] MEDS: MEROPENEM 1 GM in DEXTROSE 5%-WATER 100 ML IVPB SCH ×3 (01:48→17:53)
[2022-12-17] MEDS: traMADol HCL 50 MG TABLET PO PRN ×2 (09:06→17:59)
[2022-12-17] MEDS: valACYclovir HCL 500 MG TABLET (FP) PO SCH (10:39)
[2022-12-17] MEDS: ASPIRIN 81 MG CHEWABLE TABLETS PO SCH (10:39)
[2022-12-17] MEDS: POTASSIUM CHLORIDE TABS 20 MEQ TABLET.ER (FP) PO SCH (10:39)
[2022-12-17] MEDS: amLODIPine BESYLATE 10 MG TABLET (FP) PO SCH (10:39)
[2022-12-17] MEDS: LOSARTAN POTASSIUM 50 MG TABLET PO SCH (10:39)
[2022-12-17] MEDS: CALCITRIOL 0.25 MCG CAPSULE (FP) PO SCH ×2 (10:39→22:06)
[2022-12-17] MEDS: REMDESIVIR 100 MG in SODIUM CHLORIDE 250 ML IVPB SCH (10:40)
[2022-12-17] MEDS: SENNOSIDES 8.6MG TABLET (FP) PO SCH (22:06)
[2022-12-17] MEDS: FAMOTIDINE 20 MG TABLET PO SCH (22:06)
[2022-12-17] MEDS: DOCUSATE SODIUM 100 MG CAPSULE (FP) PO SCH (22:06)
[2022-12-18] MEDS: MEROPENEM 1 GM in DEXTROSE 5%-WATER 100 ML IVPB SCH ×3 (01:34→17:52)
[2022-12-18] MEDS: traMADol HCL 50 MG TABLET PO PRN (01:35)
[2022-12-18] MEDS: amLODIPine BESYLATE 10 MG TABLET (FP) PO SCH (10:19)
[2022-12-18] MEDS: MAG HYDROX/AL HYDROX/SIMETH 30 ML UNIT-DOSE CUP PO PRN ×2 (10:19→17:52)
[2022-12-18] MEDS: POTASSIUM CHLORIDE TABS 20 MEQ TABLET.ER (FP) PO SCH (10:20)
[2022-12-18] MEDS: LOSARTAN POTASSIUM 50 MG TABLET PO SCH (10:20)
[2022-12-18] MEDS: CALCITRIOL 0.25 MCG CAPSULE (FP) PO SCH ×2 (10:20→21:49)
[2022-12-18] MEDS: valACYclovir HCL 500 MG TABLET (FP) PO SCH (10:20)
[2022-12-18] MEDS: ASPIRIN 81 MG CHEWABLE TABLETS PO SCH (10:20)
[2022-12-18] MEDS: REMDESIVIR 100 MG in SODIUM CHLORIDE 250 ML IVPB SCH (12:24)
[2022-12-18] MEDS: SENNOSIDES 8.6MG TABLET (FP) PO SCH (21:49)
[2022-12-18] MEDS: FAMOTIDINE 20 MG TABLET PO SCH (21:49)
[2022-12-18] MEDS: DOCUSATE SODIUM 100 MG CAPSULE (FP) PO SCH (21:49)
[2022-12-18 22:41] VITALS: RESP 18
[2022-12-19] MEDS: MEROPENEM 1 GM in DEXTROSE 5%-WATER 100 ML IVPB SCH ×2 (02:25→09:59)
[2022-12-19] MEDS: ACETAMINOPHEN 325 MG TABLET (FP) PO PRN (02:36)
[2022-12-19] MEDS: traMADol HCL 50 MG TABLET PO PRN (02:43)
[2022-12-19 08:47] VITALS: BP 157/86; PULSE 67; TEMP 97
[2022-12-19] MEDS: amLODIPine BESYLATE 10 MG TABLET (FP) PO SCH (09:58)
[2022-12-19] MEDS: CALCITRIOL 0.25 MCG CAPSULE (FP) PO SCH (09:58)
[2022-12-19] MEDS: ASPIRIN 81 MG CHEWABLE TABLETS PO SCH (09:58)
[2022-12-19] MEDS: LOSARTAN POTASSIUM 50 MG TABLET PO SCH (09:59)
[2022-12-19] MEDS: POTASSIUM CHLORIDE TABS 20 MEQ TABLET.ER (FP) PO SCH (09:59)
[2022-12-19] MEDS: valACYclovir HCL 500 MG TABLET (FP) PO SCH (09:59)
== END 2022-12-19 13:43 | disposition home health service (06) | DRG 177 ==
LOC: JER 13:11 → JERBED 22:14 → OBSVTOIN 22:14 → J7W 12-15 18:48
PROVIDERS: ADMIT Internal Medicine; ATTEND Family Medicine
PROC: XW033E5 Introduction of Remdesivir Anti-infective into Peripheral Vein, Percutaneous Approach, New Technology Group 5 (ICD-10-PCS; principal; 2022-12-13)
PROC: 30233N1 Transfusion of Nonautologous Red Blood Cells into Peripheral Vein, Percutaneous Approach (ICD-10-PCS; 2022-12-14)
DX: U07.1 COVID-19 (principal); J12.82 Pneumonia due to coronavirus disease 2019; J96.01 Acute respiratory failure with hypoxia; C90.00 Multiple myeloma not having achieved remission; D64.9 Anemia, unspecified; E83.42 Hypomagnesemia; I10 Essential (primary) hypertension; E87.6 Hypokalemia; K59.00 Constipation, unspecified
CPT/HCPCS: 0241U-QW; 36415; 36430; 71045-TC-FY; 71275-TC; 74177-TC; 80048; 80053; 83605; 83615; 83690; 83735; 83880; 84100; 84484; 85025; 85610; 85730; 86140; 86850; 86870; 86900; 86901; 86902; 86922; 87040; 93005; 93010; 99285-25; C9399; P9058; Q9967

== ENCOUNTER 2023-01-29 18:31 | Inpatient (IN) | payer OTHER ==
[2023-01-29 18:42] VITALS: BMI 18.0
[2023-01-29 19:04] LABS: BASO % 0.5 % (0-2.0); EOS % 0.2 % (0-4.5); LYMPH % 42.3 % (8-40); MCHC 33.2 g/dl (32.0-36.0); MEAN CELL VOLUME 102.4 fl (80-96); MEAN PLT VOLUME 6.5 fl (7.5-11.1); MONO % 7.4 % (3.8-10.2); NEUT % 49.6 % (42.8-82.8); PLATELET COUNT 275 10^3/uL (134-434); RBC 2.05 M/mm3 (3.60-5.2); RDW 25.8 % (11.6-15.6); WHITE BLOOD COUNT 5.2 K/mm3 (4.0-10.0)
[2023-01-29 19:11] LABS: INR 1.04 (0.83-1.09); PROTHROMBIN TIME (PATIENT) 12.1 SEC (9.7-13.0)
[2023-01-29 19:14] LABS: ACTIVATED PTT 27.5 SECONDS (25.2-36.5)
[2023-01-29 19:26] LABS: POTASSIUM 4.4 mmol/L (3.5-5.1)
[2023-01-29 19:27] LABS: CALCIUM 9.4 mg/dL (8.5-10.1)
[2023-01-29 19:28] LABS: ALBUMIN 2.6 g/dl (3.4-5.0); BLOOD UREA NITROGEN 22.7 mg/dL (7-18)
[2023-01-29 19:31] LABS: CREATININE 1.1 mg/dL (0.55-1.3)
[2023-01-29 19:33] LABS: BILIRUBIN,TOTAL 0.3 mg/dL (0.2-1); TOT PROT 10.3 g/dl (6.4-8.2)
[2023-01-29 19:36] LABS: N-TERMINAL BNP 83.8 pg/ml (5-125)
[2023-01-29 20:04] LABS: ANISOCYTOSIS 3+; MACROCYTOSIS 1+; OVALOCYTE 1+; TEAR DROP CELLS 1+
[2023-01-29] MEDS ORDERED: traMADol HCL 50 MG TABLET PO ONE (21:41)
[2023-01-29] MEDS ORDERED: traMADol HCL 50 MG TABLET ONE (21:57)
[2023-01-29] MEDS ORDERED: ACETAMINOPHEN 1000 MG/100 ML BAG IVPB ONE (22:46)
[2023-01-30] MEDS ORDERED: traMADol HCL 50 MG TABLET PO PRN (00:57)
[2023-01-30] MEDS ORDERED: LOSARTAN POTASSIUM 50 MG TABLET PO SCH (10:00)
[2023-01-30] MEDS ORDERED: hydrALAZINE HCL 50 MG TABLET (FP) PO SCH (10:00)
[2023-01-30] MEDS ORDERED: amLODIPine BESYLATE 10 MG TABLET (FP) PO SCH (10:00)
[2023-01-30 10:17] VITALS: BP 157/83; PULSE 65; RESP 20; TEMP 98.7
[2023-01-30] MEDS ORDERED: amLODIPine BESYLATE 10 MG TABLET (FP) ONE (10:26)
[2023-01-30] MEDS ORDERED: LOSARTAN POTASSIUM 50 MG TABLET ONE (10:26)
[2023-01-30] MEDS ORDERED: hydrALAZINE HCL 50 MG TABLET (FP) ONE (10:27)
[2023-01-30] MEDS ORDERED: SENNOSIDES 8.6MG TABLET (FP) PO SCH (22:00)
[2023-01-30] MEDS ORDERED: FAMOTIDINE 20 MG TABLET PO SCH (22:00)
== END 2023-01-30 11:39 | disposition short-term general hospital (02) | DRG 812 ==
LOC: JER 18:31 → JERBED 20:59
PROVIDERS: ADMIT Internal Medicine; ATTEND Family Medicine
PROC: 30233N1 Transfusion of Nonautologous Red Blood Cells into Peripheral Vein, Percutaneous Approach (ICD-10-PCS; principal; 2023-01-29)
DX: D64.9 Anemia, unspecified (principal); C90.00 Multiple myeloma not having achieved remission; I10 Essential (primary) hypertension; R07.89 Other chest pain
CPT/HCPCS: 0241U-QW; 36415; 36430; 71045-TC-FY; 71275-TC; 80053; 82550; 83735; 83880; 84484; 85025; 85610; 85730; 86850; 86900; 86901; 86922; 93005; 93010; 99285-25; P9038; P9058; Q9967

== ENCOUNTER 2023-09-03 15:30 | Inpatient (IN) | payer OTHER ==
[2023-09-03 15:37] VITALS: BMI 20.2
[2023-09-03 17:25] LABS: BASO % 0.9 % (0-2.0); EOS % 2.8 % (0-4.5); HEMATOCRIT 28.7 % (32.4-45.2); HEMOGLOBIN 9.4 GM/dL (10.7-15.3); LYMPH % 30.2 % (8-40); MCH 33.5 pg (25.7-33.7); MCHC 32.8 g/dl (32.0-36.0); MEAN PLT VOLUME 7.8 fl (7.5-11.1); MONO % 16.3 % (3.8-10.2); NEUT % 49.8 % (42.8-82.8); PLATELET COUNT 287 10^3/uL (134-434); RBC 2.81 M/mm3 (3.60-5.2); RDW 18.6 % (11.6-15.6); WHITE BLOOD COUNT 7.6 K/mm3 (4.0-10.0)
[2023-09-03 17:36] LABS: INR 1.04 (0.83-1.09); PROTHROMBIN TIME (PATIENT) 11.9 SEC (9.7-13.0)
[2023-09-03] MEDS ORDERED: ACETAMINOPHEN INJECTION 100 ML IVPB ONE (17:37)
[2023-09-03 17:39] LABS: ACTIVATED PTT 28.9 SECONDS (25.2-36.5)
[2023-09-03] MEDS: ACETAMINOPHEN 1000 MG/100 ML BAG IVPB ONE (17:42)
[2023-09-03 17:53] LABS: POTASSIUM 5.8 mmol/L (3.5-5.1)
[2023-09-03 17:55] LABS: CALCIUM 9.1 mg/dL (8.5-10.1)
[2023-09-03 17:56] LABS: ALBUMIN 3.4 g/dl (3.4-5.0)
[2023-09-03 17:59] LABS: CREATININE 0.8 mg/dL (0.55-1.3)
[2023-09-03 18:01] LABS: BILIRUBIN,TOTAL 0.5 mg/dL (0.2-1); TOT PROT 6.7 g/dl (6.4-8.2)
[2023-09-03 19:17] LABS: CALCIUM 9.4 mg/dL (8.5-10.1)
[2023-09-03 19:19] LABS: BLOOD UREA NITROGEN 14.9 mg/dL (7-18)
[2023-09-03 19:21] LABS: CREATININE 0.9 mg/dL (0.55-1.3)
[2023-09-03] MEDS ORDERED: CEFTRIAXONE 1 GM/50 ML BAG ONE (22:49)
[2023-09-03] MEDS: CEFTRIAXONE 1,000 MG in DEXTROSE 5%-WATER - 50 ML IVPB ONE (23:10)
[2023-09-04] MEDS ORDERED: MEROPENEM 1 GM VIAL (RESTRICTED TO ID) IVPB ONE (03:49)
[2023-09-04] MEDS ORDERED: VANCOMYCIN 500 MG VIAL (RESTRICTED TO ID ONLY) ONE (03:50)
[2023-09-04] MEDS: VANCOMYCIN 750 MG in DEXTROSE 5%-WATER - 150 ML IVPB ONE (03:51)
[2023-09-04] MEDS: MEROPENEM 1 GM in DEXTROSE 5%-WATER 100 ML IVPB SCH ×2 (04:55→04:59)
[2023-09-04] MEDS: hydrALAZINE HCL 50 MG TABLET (FP) PO SCH (05:02)
[2023-09-04] MEDS ORDERED: hydrALAZINE HCL 50 MG TABLET (FP) PO SCH (06:00)
[2023-09-04 08:03] LABS: HEMATOCRIT 28.6 % (32.4-45.2); HEMOGLOBIN 9.5 GM/dL (10.7-15.3); MCHC 33.4 g/dl (32.0-36.0); MEAN CELL VOLUME 101.8 fl (80-96); MEAN PLT VOLUME 7.3 fl (7.5-11.1); PLATELET COUNT 300 10^3/uL (134-434); RBC 2.81 M/mm3 (3.60-5.2); RDW 18.1 % (11.6-15.6); WHITE BLOOD COUNT 6.7 K/mm3 (4.0-10.0)
[2023-09-04 08:22] LABS: BLOOD UREA NITROGEN 13.9 mg/dL (7-18); CALCIUM 9.1 mg/dL (8.5-10.1)
[2023-09-04 08:24] LABS: ALBUMIN 3.4 g/dl (3.4-5.0); MAGNESIUM 2.1 mg/dL (1.8-2.4)
[2023-09-04 08:26] LABS: CREATININE 0.7 mg/dL (0.55-1.3)
[2023-09-04 08:28] LABS: BILIRUBIN,TOTAL 0.4 mg/dL (0.2-1); TOT PROT 6.4 g/dl (6.4-8.2)
[2023-09-04] MEDS ORDERED: CEFTRIAXONE 1 GM in DEXTROSE 5%-WATER - 50 ML IVPB SCH (10:00)
[2023-09-04] MEDS ORDERED: LOSARTAN POTASSIUM 50 MG TABLET ONE (10:18)
[2023-09-04] MEDS ORDERED: POTASSIUM CHLORIDE TABS 20 MEQ TABLET.ER (FP) PO ONE (10:18)
[2023-09-04] MEDS ORDERED: amLODIPine BESYLATE 10 MG TABLET (FP) ONE (10:18)
[2023-09-04] MEDS: POTASSIUM CHLORIDE TABS 20 MEQ TABLET.ER (FP) PO SCH (10:30)
[2023-09-04] MEDS: valACYclovir HCL 500 MG TABLET (FP) PO SCH (10:30)
[2023-09-04] MEDS: LOSARTAN POTASSIUM 50 MG TABLET PO SCH (10:30)
[2023-09-04] MEDS: amLODIPine BESYLATE 10 MG TABLET (FP) PO SCH (10:30)
[2023-09-04] MEDS: ASPIRIN 81 MG CHEWABLE TABLETS PO SCH (10:30)
[2023-09-04] MEDS: CALCITRIOL 0.25 MCG CAPSULE (FP) PO SCH (10:30)
[2023-09-04] MEDS ORDERED: hydrALAZINE HCL 50 MG TABLET (FP) ONE (13:55)
[2023-09-04] MEDS: ACETAMINOPHEN 325 MG TABLET (FP) PO PRN (21:57)
[2023-09-05 07:41] LABS: HEMATOCRIT 30.2 % (32.4-45.2); HEMOGLOBIN 10.1 GM/dL (10.7-15.3); MCH 33.8 pg (25.7-33.7); MCHC 33.3 g/dl (32.0-36.0); MEAN CELL VOLUME 101.7 fl (80-96); MEAN PLT VOLUME 7.3 fl (7.5-11.1); PLATELET COUNT 388 10^3/uL (134-434); RBC 2.97 M/mm3 (3.60-5.2); RDW 18.6 % (11.6-15.6); WHITE BLOOD COUNT 6.1 K/mm3 (4.0-10.0)
[2023-09-05 07:44] LABS: INR 1.04 (0.83-1.09); PROTHROMBIN TIME (PATIENT) 11.7 SEC (9.7-13.0)
[2023-09-05 07:47] LABS: ACTIVATED PTT 29.5 SECONDS (25.2-36.5)
[2023-09-05 07:54] LABS: POTASSIUM 4.1 mmol/L (3.5-5.1)
[2023-09-05 07:57] LABS: CALCIUM 9.4 mg/dL (8.5-10.1)
[2023-09-05 07:58] LABS: ALBUMIN 3.5 g/dl (3.4-5.0); BLOOD UREA NITROGEN 16.2 mg/dL (7-18)
[2023-09-05 08:02] LABS: CREATININE 0.7 mg/dL (0.55-1.3); PHOSPHOROUS 3.9 mg/dL (2.5-4.9)
[2023-09-05 08:03] LABS: BILIRUBIN,TOTAL 0.4 mg/dL (0.2-1); TOT PROT 6.6 g/dl (6.4-8.2)
[2023-09-05 09:11] LABS: ANISOCYTOSIS 1+; MACROCYTOSIS 1+; OVALOCYTE 2+; TEAR DROP CELLS 1+
[2023-09-05 14:03] VITALS: BP 130/81; PULSE 98; RESP 15; TEMP 98
== END 2023-09-05 16:25 | disposition home or self-care (01) | DRG 864 ==
LOC: JER 15:30 → JERBED 19:52 → OBSVTOIN 09-04 13:04 → J4S 09-04 14:32
PROVIDERS: ADMIT Internal Medicine; ATTEND Internal Medicine
DX: R50.9 Fever, unspecified (principal); C90.00 Multiple myeloma not having achieved remission; I10 Essential (primary) hypertension; D64.9 Anemia, unspecified; T45.1X5A Adverse effect of antineoplastic and immunosuppressive drugs, initial encounter; R05.9 Cough, unspecified
CPT/HCPCS: 0241U-QW; 36415; 71275-TC; 80048; 80053; 82308; 82550; 83735; 83880; 84100; 84484; 85025; 85027; 85610; 85730; 87070; 87081; 87205; 87899; 93005; 93010; 93306-TC; 99285-25; G0378; J0131; Q9967